=== PATIENT | female | born 1955 | race Caucasian/White ===

== ENCOUNTER → 2017-03-28 | Outpatient (CLI) | payer OTHER ==
--- NOTE | 2017-03-28 13:01 | XR ---
EXAMINATION TYPE: XR chest 2V DATE OF EXAM: 03/28/2017 COMPARISON: Prior chest x-ray 01/25/2013 HISTORY: Nonspecific reaction to tuberculin skin test, R76.11 TECHNIQUE: Frontal and lateral views of the chest are obtained. FINDINGS: Postop changes are noted at the cervicothoracic junction level. Apical pleural thickening is present. There is a mild spinal curvature, degenerative disc changes are present within the visual ized spine. No pneumonia, pneumothorax, or pleural effusion. Prominent lung volume could be indicativ e of underlying COPD. Cardiac mediastinal silhouette, pulmonary vascularity and tiffany within normal li mits. IMPRESSION: No acute cardiopulmonary process.
== END | disposition home or self-care (01) ==
LOC: RADXRMAIN 10:27
PROVIDERS: ATTEND Dermatology MOHS-Micrographic Surgery
DX: R76.11 Nonspecific reaction to tuberculin skin test without active tuberculosis (principal)
CPT/HCPCS: 71020

== ENCOUNTER → 2020-07-28 | Outpatient (CLI) | payer MEDICARE, OTHER ==
[2020-07-28 14:05] LABS: HCT 47.1 % (34.0-46.0); HGB 15.1 gm/dL (11.4-16.0); MCH 27.2 pg (25.0-35.0); MCHC 31.9 g/dL (31.0-37.0); MCV 85.2 fL (80.0-100.0); Platelet Count 291 k/uL (150-450); RBC 5.53 m/uL (3.80-5.40); RDW 13.4 % (11.5-15.5); WBC 13.3 k/uL (3.8-10.6)
[2020-07-28 14:17] LABS: Magnesium 2.2 mg/dL (1.6-2.3); Potassium 5.6 mmol/L (3.5-5.1)
== END | disposition home or self-care (01) ==
LOC: LABWHC1 11:29
PROVIDERS: ATTEND Internal Medicine Interventional Cardiology
DX: Z01.818 Encounter for other preprocedural examination (principal); R07.9 Chest pain, unspecified
CPT/HCPCS: 36415; 82565; 83735; 84132; 84520; 85027

== ENCOUNTER 2020-08-07 06:36 | Day surgery (SDC) | payer MEDICARE, OTHER ==
[2020-08-05 11:43] VITALS: BMI 25.9
[~2020-08-07 06:36] MED LIST: ALPRAZolam 0.25 MG TAB PO PRN; ALPRAZolam 0.5 MG TAB PO PRN; ASPIRIN 325 MG TAB PO STA; ATORVASTATIN 80 MG TAB PO STA; NITROGLYCERIN SL TABS 0.4 MG TAB SUBLINGUAL PRN; SODIUM CHLORIDE 0.9% 1,000 ML in EMPTY BAG 1 BAG IV ONE
[2020-08-07] MEDS ORDERED: SODIUM CHLORIDE 0.9% 1,000 ML IV ONE (06:46)
[2020-08-07 07:04] VITALS: RESP 16
[2020-08-07 07:15] LABS: Basophils # (A) 0.1 k/uL (0-0.2); Basophils % (A) 1 %; Eosinophils # (A) 0.4 k/uL (0-0.7); Eosinophils % (A) 3 %; HCT 46.1 % (34.0-46.0); Lymphocytes # (A) 1.1 k/uL (1.0-4.8); Lymphocytes % (A) 9 %; MCH 28.3 pg (25.0-35.0); MCHC 32.6 g/dL (31.0-37.0); Mean Platelet Volume 6.6; Monocytes # (A) 0.9 k/uL (0-1.0); Monocytes % (A) 7 %; Neutrophils # (A) 9.6 k/uL (1.3-7.7); Neutrophils % (A) 77 %; Platelet Count 244 k/uL (150-450); RDW 13.4 % (11.5-15.5); WBC 12.4 k/uL (3.8-10.6)
[2020-08-07 07:28] LABS: Calcium 9.5 mg/dL (8.4-10.2); Magnesium 2.1 mg/dL (1.6-2.3); Potassium 4.5 mmol/L (3.5-5.1)
[2020-08-07] MEDS ORDERED: MIDAZOLAM 2 MG/2 ML VIAL IVP ONE (07:39)
[2020-08-07] MEDS ORDERED: LIDOCAINE 1% INJ 10MG/ML (20 ML MDV) SQ ONE (07:40)
[2020-08-07] MEDS ORDERED: VERAPAMIL SYRINGE (5 MG/10 ML) INTRAARTER ONE (07:41)
[2020-08-07] MEDS ORDERED: HEPARIN SODIUM 1,000 UN/ML (10ML VL) IV ONE (07:42)
[2020-08-07] MEDS ORDERED: IOPAMIDOL-370 125ML BTL INJ ONE (07:48)
[2020-08-07] MEDS ORDERED: RX INFO: IV CONTRAST WAS GIVEN 1 EACH MISC MISCELLANE PRN (07:56)
[2020-08-07] MEDS ORDERED: SODIUM CHLORIDE 0.9% 1,000 ML IV SCH (08:00)
--- NOTE | 2020-08-07 09:22 | CC ---
CARDIAC CATHETERIZATION REPORT DATE OF SERVICE: 08/07/2020 PERFORMING PHYSICIAN: Israel Harley MD. PROCEDURE PERFORMED: 1. Selective right and left coronary angiogram. 2. Left heart catheterization. INDICATION: This is a very pleasant 65-year-old female patient with history of smoking and significant family history of coronary artery disease, was experiencing left arm and chest discomfort concerning for angina. She expressed that she would like to have a definite diagnosis and because of that, a heart catheterization was advised. APPROACH: Right radial artery. COMPLICATION: None. LEVEL OF SEDATION: Moderate with sedation length of 13 minutes. PROCEDURE DESCRIPTION: After obtaining an informed consent, the patient was brought to the cardiac laborer beam house. The right radial artery was cannulated using micropuncture technique, the micropuncture wire passed easily and I placed after that a 5-Bolivian sheath at the right radial artery. Two mg of verapamil IA and a total of 5000 of heparin given after that. Selective right and left coronary angiogram were performed using JR4 and JL3.5 catheters. After that, I did leave heart catheterization using 5-Bolivian pigtail catheter. The procedure was completed without any complication. SELECTIVE CORONARY ANGIOGRAM: 1. The right coronary artery is a large caliber vessel and it is a dominant vessel. The RCA is angiographically normal. It bifurcates distally into PDA and PLV branches, both are angiographically normal. 2. The left main is angiographically normal, it bifurcates into LCX and LAD. 3. The LCX is a large caliber vessel, it is a nondominant vessel. The left circumflex is angiographically normal. It gives rise into an OM branch which appeared to be angiographically normal. 4. The LAD, the LAD is angiographically normal. The LAD gives rise in the proximal portion into a large diagonal branch which seems to be angiographically normal. 5. HEMODYNAMICS: The LVEDP was 10 mmHg without significant gradient across the aortic valve. CONCLUSION: 1. Normal coronary angiogram. 2. Normal LVEDP. MMODL / IJN: [id number] /
[2020-08-07 15:18] VITALS: BP 148/82; PULSE 77
== END 2020-08-07 14:50 | disposition home or self-care (01) ==
LOC: CATHCVL 06:36
PROVIDERS: ATTEND Internal Medicine Interventional Cardiology
DX: R07.89 Other chest pain (principal); R06.02 Shortness of breath; R20.0 Anesthesia of skin; R94.31 Abnormal electrocardiogram [ECG] [EKG]; F17.210 Nicotine dependence, cigarettes, uncomplicated; Z82.49 Family history of ischemic heart disease and other diseases of the circulatory system; Z79.82 Long term (current) use of aspirin; Z79.899 Other long term (current) drug therapy
CPT/HCPCS: 93458; 80048; 83735; 85025; C1769; C1894; J2250; J2001; J1644; Q9967

== ENCOUNTER → 2020-08-26 | Outpatient (CLI) | payer MEDICARE, OTHER ==
--- NOTE | 2020-08-27 09:10 | CT ---
EXAMINATION TYPE: CT angio neck DATE OF EXAM: 08/26/2020 HISTORY: left sided stenosis COMPARISON: NONE CT DLP: 476.1 mGycm. Automated Exposure Control for Dose Reduction was Utilized. TECHNIQUE: CTA scan of the neck is performed without and with IV Contrast, patient injected with 65c c mL of Isovue 370, axial images are obtained, coronal and sagittal reformatted images are reviewed. Three-D reconstructed images are created on an independent workstation and reviewed. FINDINGS: Carotid/Vascular Structures: Normal 3 vessel origin from the aortic arch. [id number] peripheral plaque in the aortic arch. Normal origin right common carotid artery from the right brachiocephalic artery. No significant plaque or stenosis right common carotid artery. Moderate calcified plaque righ t carotid bulb extends into external carotid artery where there is moderate noncalcified plaque, no s ignificant stenosis is noted. Patent right internal carotid artery without significant plaque or sten osis, mild to moderate calcified plaque supraclinoid segment without significant stenosis. Mild peripheral plaque along course of the left common carotid artery without significant stenosis. M ore moderate mixed plaque left carotid bulb extending into proximal internal carotid artery where the re is more significant noncalcified plaque causing stenosis. Stenosis best appreciated narrow series 10 image 477 Ross segment where the lumen diameter is narrowed to 1.4 mm and reconstitution to 5.0 mm cranial to this image 507. Remainder left internal carotid artery shows mild calcified plaque suprac linoid segments without significant stenosis. There is a patent external carotid artery without signi ficant stenosis. Codominant vertebrobasilar system. Vertebral arteries are patent to basilar junction. Other: Rim-enhancing 1.1 cm lateral left thyroid nodule mid to lower pole level axial image 34 series 7. Moderate emphysematous change with scattered labs in the visualized lung apices. There is anterior fusion plate and artificial disc material C5-C7 levels. Coronal images show scoliot ic curvature in the cervical thoracic spine. IMPRESSION: 1. Confirmation of significant focal stenosis in the proximal left internal carotid artery measured a pproaching 75% lumen diameter narrowing. 2. Greater than 1 cm enhancing left thyroid nodule, follow-up thyroid ultrasound is advised to better evaluate and characterize if this is not known finding.
== END | disposition home or self-care (01) ==
LOC: RADCTMAIN 14:26
PROVIDERS: ATTEND Internal Medicine Interventional Cardiology
DX: I65.22 Occlusion and stenosis of left carotid artery (principal); E04.1 Nontoxic single thyroid nodule
CPT/HCPCS: 82565; 84520; 70498; 36415; Q9967

== ENCOUNTER 2020-09-16 08:30 | Inpatient (IN) | payer MEDICARE, OTHER ==
[2020-09-14 10:50] VITALS: BMI 25.9
[2020-09-21] MEDS ORDERED: NITROGLYCERIN SL TABS 0.4 MG TAB SUBLINGUAL PRN (05:54)
[2020-09-21] MEDS ORDERED: ASPIRIN 325 MG TAB PO PRN (05:54)
[2020-09-21] MEDS ORDERED: SODIUM CHLORIDE 0.9% 1,000 ML in EMPTY BAG 1 BAG IV ONE (05:54)
[2020-09-21] MEDS ORDERED: CLOPIDOGREL 75 MG TAB PO PRN (05:54)
[2020-09-21] MEDS ORDERED: ASPIRIN 81 MG ONE (06:41)
[2020-09-21] MEDS ORDERED: CLOPIDOGREL 75 MG TAB ONE (07:12)
[2020-09-21] MEDS ORDERED: LIDOCAINE 1% INJ 10MG/ML (20 ML MDV) SQ ONE (07:53)
[2020-09-21] MEDS: HEPARIN SODIUM 1,000 UN/ML (10ML VL) IV ONE ×2 (08:05→09:09)
[2020-09-21] MEDS ORDERED: IOPAMIDOL-250 100ML BTL INTRAARTER ONE (09:36)
[2020-09-21] MEDS ORDERED: MAG HYDROX/AL HYDROX/SIMETH 30 ML CUP PO PRN (09:45)
[2020-09-21] MEDS ORDERED: RX INFO: IV CONTRAST WAS GIVEN 1 EACH MISC MISCELLANE PRN (09:45)
[2020-09-21] MEDS ORDERED: ATROPINE SULFATE 0.1 MG/ML 10ML SYRINGE IV PRN (09:45)
--- NOTE | 2020-09-21 10:24 | LTR ---
DATE OF SERVICE: 09/21/2020 RE: Alysha Aburto Dear Dr. Balbuena: Ms. Zane Longo underwent today successful stenting of the left common and left internal carotid artery. Thank you for allowing us to participate in her care and please do not hesitate to call for question or concern. Sincerely, Israel Harley MD MMIRA / LEEANNA: [id number] /
--- NOTE | 2020-09-21 10:46 | AN ---
ANGIOGRAPHY REPORT DATE OF SERVICE: 09/21/2020. PERFORMING PHYSICIAN: Israel Harley MD. PROCEDURE PERFORMED: 1. Successful stenting of the left internal carotid artery using 6-2.8 mm x 40 mm Acculink self expandable stent with an excellent angiographic results. 2. Successful placement of Emboshield NAV6 distal protection filter. 3. Successful stenting of the ostial right common carotid artery using 7.0 x 29 mm Omnilink Elite balloon expandable stent with an excellent angiographic results. 4. An angiogram of the left common and left internal carotid artery. 5. An aortic arch angiogram. INDICATION: This is a 65-year-old female patient who was diagnosed recently with critical disease involving the left internal carotid artery. She was brought today to undergo an intervention. APPROACH: Right common femoral artery. COMPLICATION: None. LEVEL OF SEDATION: Moderate with sedation length of 107 minutes. PROCEDURE DESCRIPTION: After obtaining an informed consent, the patient was brought to the cardiac equipment operator/laborer. The right common femoral artery was cannulated using micropuncture technique and a micropuncture wire passed easily, then I placed a 90 cm 6-Burkinan shuttle sheath. I did after that, an aortic arch angiogram using 5-Burkinan pigtail catheter. That revealed type 2 aortic arch with calcification involving the ostial of the left common carotid artery. Subsequently, I tried to select the left common carotid artery using a JB2 catheter and I was unsuccessful. Then after that I was able using a Berenstein catheter. After that, I did wire the left common carotid artery and left external carotid artery using 0.035 stiff Glidewire. Attempting advancing the sheath over the over the Berenstein catheter and the 0.035 stiff Glidewire was unsuccessful even though I changed my wire into Supercore wire. After that, I was able to advance the sheath over the dilator and using 0.035 stiff Glidewire, but this time I did change my sheath into sheath. Subsequently< I did selective left internal carotid artery angiogram which showed a very tight ulcerated lesion. After prepping the filter, which was an F6 filter under saline, and made sure there was no bubble left, I did deploy the filter in the left internal carotid artery. Predilatation was performed using 4 mm balloon and using 4 mm x 30 mm balloon. Subsequently, I deployed the 6 to 8 mm x 40 mm balloon self-expandable stent where the stent was positioned under fluoroscopic guidance. After that, I post-dilated the stent using 5 mm balloon. The following angiogram showed excellent angiographic result. Because the ostial of the left common iliac artery has very tight lesion, I decided to stent that. So I advanced 7 x 29 mm Omnilink balloon expandable stent where the stent was positioned under fluoroscopy guidance and then it was deployed after injected contrast to make sure I was in the right place. The following angiogram showed excellent angiographic results and the procedure was completed without any complication. By the end, I did selective right common femoral artery angiogram after I changed my long sheath into short sheath using 0.035 stiff Glidewire. Then after that I did deploy the Perclose device. The procedure was completed without any complication. POSTPROCEDURE MANAGEMENT: 1. Dual anti-platelet therapy. 2. Risk factor modifications. 3. Follow up with the patient. MMODL / IJN: [id number] /
[2020-09-21] MEDS: ACETAMINOPHEN TAB 325 MG TAB PO PRN ×2 (11:03→20:06)
[2020-09-21] MEDS: SODIUM CHLORIDE 0.9% 1,000 ML IV SCH ×2 (13:30→20:07)
--- NOTE | 2020-09-21 17:09 | IR ---
EXAMINATION TYPE: IR stent intravas non coronary DATE OF EXAM: 09/21/2020 COMPARISON: NONE HISTORY: Left carotid stenosis TECHNIQUE: Fluoroscopy. FINDINGS: Fluoroscopic guidance was provided during procedure performed by Dr. Root. A total of 43 .5 minute of fluoroscopic time was utilized during the procedure and 504 images were acquired. Please see operative report for additional details. IMPRESSION: As Above.
[2020-09-21] MEDS ORDERED: ATORVASTATIN 40 MG TAB PO SCH (21:00)
[2020-09-21] MEDS ORDERED: ATORVASTATIN 80 MG TAB PO SCH (21:00)
[2020-09-22 08:16] VITALS: BP 107/66; PULSE 84; RESP 18; TEMP 98.4
[2020-09-22 08:18] LABS: Basophils # (A) 0.1 k/uL (0-0.2); Basophils % (A) 1 %; Eosinophils # (A) 0.5 k/uL (0-0.7); Eosinophils % (A) 5 %; HCT 40.2 % (34.0-46.0); HGB 13.4 gm/dL (11.4-16.0); Lymphocytes # (A) 1.2 k/uL (1.0-4.8); Lymphocytes % (A) 11 %; MCH 28.3 pg (25.0-35.0); MCHC 33.3 g/dL (31.0-37.0); MCV 85.1 fL (80.0-100.0); Mean Platelet Volume 6.8; Monocytes # (A) 0.8 k/uL (0-1.0); Monocytes % (A) 8 %; Neutrophils # (A) 7.8 k/uL (1.3-7.7); Neutrophils % (A) 73 %; Platelet Count 206 k/uL (150-450); RBC 4.73 m/uL (3.80-5.40); RDW 13.1 % (11.5-15.5); WBC 10.7 k/uL (3.8-10.6)
[2020-09-22 08:38] LABS: Calcium 9.3 mg/dL (8.4-10.2); Potassium 4.8 mmol/L (3.5-5.1)
[2020-09-22] MEDS ORDERED: CLOPIDOGREL 75 MG TAB PO SCH (09:00)
[2020-09-22] MEDS ORDERED: ASPIRIN 81 MG PO SCH (09:00)
[2020-09-22] MEDS ORDERED: ASPIRIN 325 MG TAB PO SCH (09:00)
--- NOTE | 2020-09-22 10:09 | P.PN ---
Subjective Progress Note Date: 09/22/20 Discharge note This is a pleasant 65-year-old female with history of nicotine dependence, strong family history of premature coronary artery disease, hyperlipidemia, who was found to have critical disease involving the left internal carotid artery. She was admitted to the hospital and underwent successful stenting of the left internal carotid artery, successful placement of Emboshield protection filter, successful stenting of the ostial right common carotid artery. The patient was seen and examined this morning, overall doing well, blood pressure 108/60 with a heart rate in the 80s, temperature 98.4 she is 99% on room air. White blood cell count 10.7, hemoglobin 13.4, platelet count 206. Sodium 137, potassium 4.8, BUN 15, creatinine 0.8. Objective - Vital Signs Vital signs: Vital Signs Temp 98.4 F 09/22/20 08:00 Pulse 84 09/22/20 08:00 Resp 18 09/22/20 08:00 BP 107/66 09/22/20 08:00 Pulse Ox 99 09/22/20 08:00 Intake & Output 09/21/20 09/22/20 09/22/20 18:59 06:59 18:59 Intake Total 840 Output Total 340 Balance 840 -340 Weight 64.41 kg 64.4 kg Intake: IV 600 Oral 240 Output: Urine 340 Other: # Voids 1 1 - Exam PHYSICAL EXAMINATION: GENERAL: 65-year-old female in no acute distress at the time of my examination HEENT: Head is atraumatic, normocephalic. Pupils equal, round. Sclera anicteric. Conjunctiva are clear. Mucous membranes of the mouth are moist. Neck is supple. There is no elevated jugular venous pressure. HEART EXAMINATION: Heart S1, S2 normal. No murmur or gallop heard. CHEST EXAMINATION: Lungs are clear to auscultation and precussion. No chest wall tenderness is noted on palpation or with deep breathing. ABDOMEN: Soft, nontender. Bowel sounds are heard. No organomegaly noted. EXTREMITIES: 2+ peripheral pulses with no evidence of peripheral edema and no calf tenderness noted. Right groin is soft, it is ecchymotic. No hematoma. NEUROLOGIC patient is awake, alert and oriented 3 . - Labs CBC & Chem 7: 09/22/20 07:19 09/22/20 07:19 Labs: Abnormal Lab Results - Last 24 Hours (Table) 09/22/20 09/22/20 Range/Units 07:19 07:19 WBC 10.7 H (3.8-10.6) k/uL Neutrophils # 7.8 H (1.3-7.7) k/uL Glucose 128 H (74-99) mg/dL Assessment and Plan Plan: Assessment and plan #1 status post successful stenting of the left internal carotid artery with placement of Emboshield protection filter, successful stenting of the ostial right common carotid. #2 nicotine dependence #3 hyperlipidemia #4 family history of premature coronary artery disease Plan Patient may be discharged home today. We'll make her a follow-up appointment in the office with Dr. Root in one week. Discharge medications include aspirin 81 mg daily, Lipitor 80 mg daily, Plavix 75 mg daily, Toprol 25 mg daily. DNP note has been reviewed, I agree with a documented findings and plan of care. Patient was seen and examined.
[2020-10-05] MEDS ORDERED: PATIENT'S OWN (Adalimumab [Humira(Cf) Pen] 40 MG/0.4 ML Pen.Ij.Kit) SQ SCH (09:00)
== END 2020-09-22 11:57 | disposition home or self-care (01) | DRG 36 ==
LOC: 2ORMAIN 09-21 06:22 → 3SCARD 09-21 12:18
PROVIDERS: ADMIT Internal Medicine Interventional Cardiology; ATTEND Internal Medicine Interventional Cardiology
PROC: 037L3DZ Dilation of Left Internal Carotid Artery with Intraluminal Device, Percutaneous Approach (ICD-10-PCS; principal; 2020-09-21 07:30)
PROC: 037H3DZ Dilation of Right Common Carotid Artery with Intraluminal Device, Percutaneous Approach (ICD-10-PCS; 2020-09-21 07:30)
DX: I65.23 Occlusion and stenosis of bilateral carotid arteries (principal); Z82.49 Family history of ischemic heart disease and other diseases of the circulatory system; F17.210 Nicotine dependence, cigarettes, uncomplicated; E78.5 Hyperlipidemia, unspecified; Z79.82 Long term (current) use of aspirin; Z79.899 Other long term (current) drug therapy
CPT/HCPCS: 37215; 37218; 80048; 85025; 85347

== ENCOUNTER 2023-01-10 07:24 | Observation (INO) | payer MEDICARE, OTHER ==
[2023-01-10] MEDS ORDERED: SODIUM CHLORIDE 0.9% 500 ML 500 ML IV STA (07:40)
[2023-01-10] MEDS ORDERED: MORPHINE SULFATE 2 MG/ML SYRINGE IVP ONE (07:41)
[2023-01-10] MEDS ORDERED: ONDANSETRON 4 MG/2 ML VIAL IVP STA (07:41)
[2023-01-10] MEDS ORDERED: NITROGLYCERIN OINT 1 INCH/GM PACKET TOPICAL STA (07:41)
[2023-01-10 08:03] LABS: Basophils # (A) 0.1 k/uL (0-0.2); Basophils % (A) 0 %; Eosinophils # (A) 0.1 k/uL (0-0.7); Eosinophils % (A) 1 %; HCT 40.8 % (34.0-46.0); HGB 13.3 gm/dL (11.4-16.0); Lymphocytes # (A) 1.3 k/uL (1.0-4.8); Lymphocytes % (A) 6 %; MCH 27.7 pg (25.0-35.0); MCHC 32.6 g/dL (31.0-37.0); MCV 84.8 fL (80.0-100.0); Monocytes # (A) 1.4 k/uL (0-1.0); Monocytes % (A) 7 %; Neutrophils # (A) 17.8 k/uL (1.3-7.7); Neutrophils % (A) 84 %; Platelet Count 236 k/uL (150-450); RBC 4.81 m/uL (3.80-5.40); RDW 13.9 % (11.5-15.5); WBC 21.3 k/uL (3.8-10.6)
[2023-01-10 08:17] LABS: ALT 90 U/L (4-34); AST 51 U/L (14-36); African American GFR (CKD) >90 (>60 ml/min/1.73 sqM); Albumin 3.8 g/dL (3.5-5.0); Alkaline Phosphatase 90 U/L (38-126); Anion Gap 7 mmol/L; Blood Urea Nitrogen 23 mg/dL (7-17); Calcium 8.8 mg/dL (8.4-10.2); Carbon Dioxide 26 mmol/L (22-30); Chloride 106 mmol/L (98-107); Glucose 91 mg/dL (74-99); Magnesium 2.3 mg/dL (1.6-2.3); Non-African American GFR(CKD) 79 (>60 ml/min/1.73 sqM); Sodium 139 mmol/L (137-145); Total Bilirubin 0.4 mg/dL (0.2-1.3); Total Protein 6.3 g/dL (6.3-8.2)
[2023-01-10 08:23] LABS: Prothrombin Time 10.3 sec (9.0-12.0)
[2023-01-10 08:27] LABS: Partial Thromboplastin Time 19.9 sec (22.0-30.0)
[2023-01-10] MEDS ORDERED: ASPIRIN 81 MG PO STA (08:27)
--- NOTE | 2023-01-10 08:28 | ED ---
General Adult HPI - General Chief complaint: Shortness of Breath Stated complaint: FRANKI Time Seen by Provider: 01/10/23 07:33 Source: patient, family, RN notes reviewed Mode of arrival: wheelchair Limitations: no limitations - History of Present Illness Initial comments: 67-year-old female returns emergency Department chief complaint chest pain shortness of breath. Patient states it started swelling. Patient was discharged from the hospital yesterday after she was admitted for her eczema, infection. Patient states that she started having chest pain increasing shortness of breath states that she feels like she has pain. Patient states she took 2 nitro which helped some. Patient states that she has a history of hypertension she has 2 prior carotid stents no cardiac stents. 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 - Related Data Home Medications Medication Instructions Recorded Confirmed Aspirin [Adult Low Dose Aspirin EC] 81 mg PO DAILY 08/05/20 01/10/23 Metoprolol Succinate (ER) [Toprol 25 mg PO DAILY 09/14/20 01/10/23 XL] Atorvastatin [Lipitor] 40 mg PO DAILY 01/07/23 01/10/23 lisinopriL [Zestril] 2.5 mg PO DAILY 01/07/23 01/10/23 predniSONE See Taper PO DAILY 01/10/23 01/10/23 Previous Rx's Medication Instructions Recorded Clopidogrel [Plavix] 75 mg PO DAILY #30 tab 09/22/20 Cephalexin [Keflex] 500 mg PO Q6HR 10 Days #40 cap 01/09/23 HYDROcodone/APAP 10-325MG [Crockett 1 tab PO Q6HR PRN 3 Days #12 tab 01/09/23 10-325] hydrOXYzine HCL [Atarax] 25 mg PO QID tab 01/09/23 Allergies Allergy/AdvReac Type Severity Reaction Status Date / Time No Known Allergies Allergy Verified 01/10/23 08:59 Review of Systems ROS Statement: Those systems with pertinent positive or pertinent negative responses have been documented in the HPI. ROS Other: All systems not noted in ROS Statement are negative. Past Medical History Past Medical History: COPD, Hyperlipidemia, Hypertension, Osteoarthritis (OA), Skin Disorder Additional Past Medical History / Comment(s): Psoriasis. See Dr Harley's H&P. Recent left arm numbness and tingling, irregular heartbeat, chest feels heavy X last 3-4 weeks periodically. History of Any Multi-Drug Resistant Organisms: None Reported Past Surgical History: Heart Catheterization, Orthopedic Surgery, Tonsillectomy Additional Past Surgical History / Comment(s): Neck surgery C5/6/7 plate placement. Carotid stent x2 09/21 Past Anesthesia/Blood Transfusion Reactions: No Reported Reaction Past Psychological History: No Psychological Hx Reported Smoking Status: Current every day smoker Past Alcohol Use History: None Reported Past Drug Use History: None Reported - Past Family History Mother Family Medical History: No Reported History General Exam Limitations: no limitations General appearance: alert, in no apparent distress Head exam: Present: atraumatic, normocephalic, normal inspection Eye exam: Present: normal appearance, PERRL, EOMI. Absent: scleral icterus, conjunctival injection, periorbital swelling ENT exam: Present: normal exam, normal oropharynx, mucous membranes moist Neck exam: Present: normal inspection, full ROM. Absent: tenderness, meningismus, lymphadenopathy Respiratory exam: Present: normal lung sounds bilaterally. Absent: respiratory distress, wheezes, rales, rhonchi, stridor Cardiovascular Exam: Present: regular rate, normal rhythm, normal heart sounds. Absent: systolic murmur, diastolic murmur, rubs, gallop, clicks GI/Abdominal exam: Present: soft, normal bowel sounds. Absent: distended, tenderness, guarding, rebound, rigid Course Vital Signs 01/10/23 07:28 Temperature 97.8 F Pulse Rate 100 Respiratory 24 Rate Blood Pressure 158/75 O2 Sat by Pulse 99 Oximetry Medical Decision Making - Medical Decision Making Was pt. sent in by a medical professional or institution (, PA, HOTEL OPERATIONS MANAGER, urgent care, hospital, or shelter...) When possible be specific @ -[No] Did you speak to anyone other than the patient for history (EMS, parent, family, police, friend...)? What history was obtained from this source @ -[No] Did you review nursing and triage notes (agree or disagree)? Why? @ -[I reviewed and agree with nursing and triage notes] Were old charts reviewed (outside hosp., previous admission, EMS record, old EKG, old radiological studies, urgent care reports/EKG's, shelter records)? Report findings @ -[Nrecent laboratory studies and prior heart catheterization] Differential Diagnosis (chest pain, altered mental status, abdominal pain women, abdominal pain men, vaginal bleeding, weakness, fever, dyspnea, syncope, headache, dizziness, GI bleed, back pain, seizure, CVA, palpatations, mental health, musculoskeletal)? @ -[Differential Chest Pain: Stable Angina, Unstable Angina, STEMI, NSTEMI Aortic Dissection, Pneumothorax, Musculoskeletal, Esophageal Spasm GERD, Cholecystitis, Pancreatitis, Zoster, th is is not meant to be an all-inclusive list. ] EKG interpreted by me (3pts min.). @ -[ EKG performed at 8:34 sinus rhythm rate of 87 MD 88 QT/QTC 377/422] X-rays interpreted by me (1pt min.). @ -[chest x-ray shows no acute process] CT interpreted by me (1pt min.). @ -[CT angiogram does not show any evidence of PE.e] U/S interpreted by me (1pt. min.). @ -[None done] What testing was considered but not performed or refused? (CT, X-rays, U/S, labs)? Why? @ -[None] What meds were considered but not given or refused? Why? @ -[None] Did you discuss the management of the patient with other professionals (professionals i.e. , PA, HOTEL OPERATIONS MANAGER, lab, RT, psych nurse, social science professor, director environmental, teacher, electorate officer, ed case manager)? Give summary @ -[Dr. Velazquez for admission with consult cardiology] Was smoking cessation discussed for >3mins.? @ -[No] Was critical care preformed (if so, how long)? @ -[No] Were there social determinants of health that impacted care today? How? (Homelessness, low income, unemployed, alcoholism, drug addiction, transportation, low edu. Level, literacy, decrease access to med. care, halfway, rehab)? @ -[No] Was there de-escalation of care discussed even if they declined (Discuss DNR or withdrawal of care, Hospice)? DNR status @ -[No] What co-morbidities impacted this encounter? (DM, HTN, Smoking, COPD, CAD, Cancer, CVA, ARF, Chemo, Hep., AIDS, mental health diagnosis, sleep apnea, morbid obesity)? @ -[None] Was patient admitted / discharged? Hospital course, mention meds given and route, prescriptions, significant lab abnormalities, going to OR and other per cameron info. @ -[admitted patient had relief after nitro patient has multiple risk factors will be admitted for cardiac rule out] Undiagnosed new problem with uncertain prognosis? @ -[No] Drug Therapy requiring intensive monitoring for toxicity (Heparin, Nitro, Insulin, Cardizem)? @ -[yes heparino] Were any procedures done? @ -[No] Diagnosis/symptom? @ -[chest pain] Acute, or Chronic, or Acute on Chronic? @ -[acutet] Uncomplicated (without systemic symptoms) or Complicated (systemic symptoms)? @ -[uncomplicated Side effects of treatment? @ -[No] Exacerbation, Progression, or Severe Exacerbation? @ -[No] Poses a threat to life or bodily function? How? (Chest pain, [place], [place], pneumonia, PE, COPD, DKA, ARF, appy, cholecystitis, CVA, Diverticulitis, Homicidal, Suicidal, threat to staff... and all critical care pts) @ -[yes chest pain may cause cardiac arrhythmia may lead to potential cardiac - Lab Data Result diagrams: 01/10/23 07:43 01/10/23 07:43 Lab Results 01/10/23 01/10/23 01/10/23 Range/Units 07:43 07:43 07:43 WBC 21.3 H (3.8-10.6) k/uL RBC 4.81 (3.80-5.40) m/uL Hgb 13.3 (11.4-16.0) gm/dL Hct 40.8 (34.0-46.0) % MCV 84.8 (80.0-100.0) fL MCH 27.7 (25.0-35.0) pg MCHC 32.6 (31.0-37.0) g/dL RDW 13.9 (11.5-15.5) % Plt Count 236 (150-450) k/uL MPV 7.0 Neutrophils % 84 % Lymphocytes % 6 % Monocytes % 7 % Eosinophils % 1 % Basophils % 0 % Neutrophils # 17.8 H (1.3-7.7) k/uL Lymphocytes # 1.3 (1.0-4.8) k/uL Monocytes # 1.4 H (0-1.0) k/uL Eosinophils # 0.1 (0-0.7) k/uL Basophils # 0.1 (0-0.2) k/uL PT 10.3 (9.0-12.0) sec INR 1.0 (<1.2) APTT 19.9 L (22.0-30.0) sec D-Dimer 2.01 H (<0.60) mg/L FEU Sodium 139 (137-145) mmol/L Potassium 4.0 (3.5-5.1) mmol/L Chloride 106 (98-107) mmol/L Carbon Dioxide 26 (22-30) mmol/L Anion Gap 7 mmol/L BUN 23 H (7-17) mg/dL Creatinine 0.78 (0.52-1.04) mg/dL Est GFR (CKD-EPI)AfAm >90 (>60 ml/min/1.73 sqM) Est GFR (CKD-EPI)NonAf 79 (>60 ml/min/1.73 sqM) Glucose 91 (74-99) mg/dL Calcium 8.8 (8.4-10.2) mg/dL Magnesium 2.3 (1.6-2.3) mg/dL Total Bilirubin 0.4 (0.2-1.3) mg/dL AST 51 H (14-36) U/L ALT 90 H (4-34) U/L Alkaline Phosphatase 90 (38-126) U/L Troponin I (0.000-0.034) ng/mL NT-Pro-B Natriuret Pep pg/mL Total Protein 6.3 (6.3-8.2) g/dL Albumin 3.8 (3.5-5.0) g/dL 01/10/23 01/10/23 Range/Units 07:43 07:43 WBC (3.8-10.6) k/uL RBC (3.80-5.40) m/uL Hgb (11.4-16.0) gm/dL Hct (34.0-46.0) % MCV (80.0-100.0) fL MCH (25.0-35.0) pg MCHC (31.0-37.0) g/dL RDW (11.5-15.5) % Plt Count (150-450) k/uL MPV Neutrophils % % Lymphocytes % % Monocytes % % Eosinophils % % Basophils % % Neutrophils # (1.3-7.7) k/uL Lymphocytes # (1.0-4.8) k/uL Monocytes # (0-1.0) k/uL Eosinophils # (0-0.7) k/uL Basophils # (0-0.2) k/uL PT (9.0-12.0) sec INR (<1.2) APTT (22.0-30.0) sec D-Dimer (<0.60) mg/L FEU Sodium (137-145) mmol/L Potassium (3.5-5.1) mmol/L Chloride (98-107) mmol/L Carbon Dioxide (22-30) mmol/L Anion Gap mmol/L BUN (7-17) mg/dL Creatinine (0.52-1.04) mg/dL Est GFR (CKD-EPI)AfAm (>60 ml/min/1.73 sqM) Est GFR (CKD-EPI)NonAf (>60 ml/min/1.73 sqM) Glucose (74-99) mg/dL Calcium (8.4-10.2) mg/dL Magnesium (1.6-2.3) mg/dL Total Bilirubin (0.2-1.3) mg/dL AST (14-36) U/L ALT (4-34) U/L Alkaline Phosphatase (38-126) U/L Troponin I 0.027 (0.000-0.034) ng/mL NT-Pro-B Natriuret Pep 2340 pg/mL Total Protein (6.3-8.2) g/dL Albumin (3.5-5.0) g/dL Disposition Clinical Impression: Chest pain Disposition: ADMITTED IP TO THIS HOSP Condition: Fair Referrals: Lesley Balbuena MD [Primary Care Provider] - 1-2 days Time of Disposition: 09:55
--- NOTE | 2023-01-10 08:33 | XR ---
EXAMINATION TYPE: XR chest 2V DATE OF EXAM: 01/10/2023 8:27 AM COMPARISON: Chest radiographs from 03/28/2017 TECHNIQUE: XR chest 2V Frontal and lateral views of the chest. CLINICAL INDICATION:Female, 67 years old with history of difficulty breathing; FINDINGS: Lungs/Pleura: Bibasilar dependent airspace opacities demonstrated on the lateral view. No pleural eff usion or pneumothorax. Pulmonary vascularity: Unremarkable. Heart/mediastinum: Cardiomediastinal silhouette is unremarkable. Atherosclerotic calcifications are seen in the aorta. Musculoskeletal: No acute osseous pathology. Anterior cervical fusion hardware. IMPRESSION: Minimal bibasilar dependent airspace opacities may represent atelectasis versus infiltrates.
--- NOTE | 2023-01-10 09:23 | CT ---
EXAMINATION TYPE: CT chest angio for PE CT DLP: 287.1 mGycm, Automated exposure control for dose reduction was used. DATE OF EXAM: 01/10/2023 8:55 AM COMPARISON: Chest radiograph from same day. CLINICAL INDICATION:Female, 67 years old with history of cp, sob; PE TECHNIQUE/CONTRAST: CTA scan of the thorax is performed without and with IV Contrast, patient injected with 100 ml mL of Isovue 370, pulmonary embolism protocol. MIP images are created and reviewed these are created on a separate workstation.. FINDINGS: Pulmonary Artery: There is no evidence for a filling defect within the pulmonary vasculature to sugge st acute pulmonary embolism. The pulmonary artery is of normal size. Lungs/Pleura: No evidence of focal consolidation or pneumothorax. Bilateral pleural effusions. Mild p araseptal and centrilobular emphysema changes. Airway: Large airways are patent. Heart: Heart is within normal limits for size. Vasculature: No evidence of aortic aneurysm. Stent graft noted within the left common carotid artery along the proximal portion. Mediastinum: No gross evidence of adenopathy. Musculoskeletal: Mild degenerative disc disease changes are present throughout the thoracolumbar spin e. Soft Tissues: Unremarkable. Lower neck: No significant findings. Upper Abdomen: Indeterminate left adrenal nodule measuring 2.9 x 1.8 cm and 14 Hounsfield units. IMPRESSION: 1. No evidence of pulmonary embolism. 2. Bilateral pleural effusions with pulmonary vascular congestion correlate for with BNP. 3. Mild emphysema changes. 4. Indeterminate left adrenal nodule. This can be completely characterized with MRI or CT adrenal mas s protocol.
[2023-01-10] MEDS ORDERED: HEPARIN SODIUM 1,000 UN/ML (10ML VL) IV PRN (10:01)
[2023-01-10] MEDS ORDERED: HEPARIN SODIUM 1,000 UN/ML (10ML VL) IV ONE (10:01)
[2023-01-10] MEDS ORDERED: NITROGLYCERIN SL TABS 0.4 MG TAB SUBLINGUAL PRN (10:01)
[2023-01-10] MEDS ORDERED: HEPARIN SOD,PORK IN 0.45% NACL 25,000 UNIT in 0.45% NACL 1 250ML.BAG IV SCH (10:15)
--- NOTE | 2023-01-10 11:49 | CA ---
Transthoracic Echo Report Name: Alysha Aburto Age: 67 Gender: F : 1955 Exam Date: 01/10/2023 10:03 Exam Location: [facility] Ht (in): 62 Wt (lb): 140 Ordering Physician: Joshua Alvarez Attending/Referring Phys: [id number], Antonio Counter Former Dayan Desai RDCS Procedure CPT: Indications: Chest Pain Cardiac Hx: Technical Quality: Good Contrast 1: Total Dose (mL): Contrast 2: Total Dose (mL): MEASUREMENTS (Male / Female) Normal Values 2D ECHO LV Diastolic Diameter PLAX 3.3 cm 4.2 - 5.9 / 3.9 - 5.3 cm LV Systolic Diameter PLAX 2.5 cm IVS Diastolic Thickness 1.0 cm 0.6 - 1.0 / 0.6 - 0.9 cm LVPW Diastolic Thickness 1.1 cm 0.6 - 1.0 / 0.6 - 0.9 cm LV Relative Wall Thickness 0.6 RV Internal Dim ED PLAX 2.8 cm LA Systolic Diameter LX 3.4 cm 3.0 - 4.0 / 2.7 - 3.8 cm LV Diastolic Volume MOD 4C 66.2 cm??? LV Systolic Volume MOD 4C 24.9 cm??? LV Ejection Fraction MOD 4C 62.4 % LV Diastolic Length 4C 8.8 cm LV Systolic Length 4C 7.0 cm LV Diastolic Volume MOD 2C 73.7 cm??? LV Systolic Volume MOD 2C 24.1 cm??? LV Ejection Fraction MOD 2C 67.3 % LV Diastolic Length 2C 8.6 cm LV Systolic Length 2C 6.6 cm LA Volume 40.7 cm??? 18 - 58 / 22 - 52 cm??? M-MODE Aortic Root Diameter MM 3.1 cm MV E Point Septal Separation 0.4 cm AV Cusp Separation MM 1.9 cm DOPPLER AV Peak Velocity 164.1 cm/s AV Peak Gradient 10.8 mmHg MV Area PHT 5.9 cm??? Mitral E Point Velocity 142.9 cm/s Mitral A Point Velocity 86.9 cm/s Mitral E to A Ratio 1.6 MV Deceleration Time 128.8 ms MV E' Velocity 11.5 cm/s Mitral E to MV E' Ratio 12.4 TR Peak Velocity 248.9 cm/s TR Peak Gradient 24.8 mmHg Right Ventricular Systolic Press 29.8 mmHg FINDINGS Left Ventricle Left ventricular ejection fraction is estimated at 60-65 %. Small left ventricular cavity. Borderline left ventricular hypertrophy. No obvious regional wall motion abnormalities. Right Ventricle Normal right ventricular size and function. Right ventricular systolic pressure within normal limits. Right Atrium Normal right atrial size. Left Atrium Normal left atrial size. Mitral Valve Mitral valve thickened. Mitral annular calcification. Mild to moderate mitral regurgitation. Aortic Valve Trileaflet aortic valve. No aortic valve stenosis or regurgitation. Tricuspid Valve Structurally normal tricuspid valve. Mild tricuspid regurgitation. Pulmonic Valve Structurally normal pulmonic valve. Trace pulmonic regurgitation. Pericardium Normal pericardium. No pericardial effusion. Aorta Normal size aortic root and proximal ascending aorta. CONCLUSIONS Normal LV systolic function Mild to moderate mitral regurgitation Previewed by: Dr. Israel Harley MD (Electronically Signed) Final Date: 10 January 2023 11:48
[2023-01-10] MEDS ORDERED: predniSONE 10 MG TAB PO SCH (15:30)
--- NOTE | 2023-01-10 16:15 | P.CRDCN ---
History of Present Illness History of present illness: HISTORY OF PRESENTING ILLNESS This is a pleasant 67 year-old female past medical history significant for psoriasis, peripheral vascular disease status post left ICA stenting 2, hy pertension, hyperlipidemia, left bundle branch block and chronic nicotine dependence-. She follows in the office with Dr. Harley. We have been asked to see in consultation for chest pain. She was just discharged from the hospital with an acute exacerbation of psoriasis and put on steroids. She was at home and developed pain in the chest and shortness of breath. She states the pain is substernal and wrapping around worse with deep breathing. EKG reveals sinus rhythm with left bundle branch block heart rate of 87. Chest x-ray revealed minimal bibasilar airspace opacities. CTA is negative for pulmonary embolism with bilateral pleural effusions noted. Laboratory data reviewed, WBC 21.3, he moglobin 13.3, platelets 236, d-dimer 2.01, sodium 139, potassium 4, creatinine 0.78, magnesium 2.3, troponin 0.027, 0.055, 0.058 and NT proBNP 2340. Current cardiac medications include aspirin 81 mg daily, atorvastatin 40 mg daily, Plavix 75 mg daily, Toprol 25 mg daily and lisinopril 2.5 mg daily. Echocardiogram was performed today revealing preserved LV systolic function with ejection fraction 60-65% with a small LV, there is no pericardial effusion, mild to moderate MR noted. She had cardiac catheterization performed July 2020 revealing normal coronary arteries. REVIEW OF SYSTEMS At the time of my exam: CONSTITUTIONAL: Denies fever or chills. CARDIOVASCULAR: Complains of pleuritic chest pain and shortness of breath. Denies orthopnea, PND or palpitations. RESPIRATORY: Denies cough. GASTROINTESTINAL: Denies abdominal pain, diarrhea, constipation, nausea or vomiting. MUSCULOSKELETAL: Denies myalgias. NEUROLOGIC: Denies numbness, tingling, headache or weakness. ENDOCRINE: Denies fatigue, weight change, polydipsia or polyurina. GENITOURINARY: Denies burning, hematuria or urgency with micturation. HEMATOLOGIC: Denies history of anemia or bleeding. PHYSICAL EXAMINATION Blood pressure 149/69 heart rate 90 afebrile and maintaining oxygen saturation on room air. CONSTITUTIONAL: No apparent distress. Multiple areas of erythema and patchy psoriatic rashes throughout her body. HEENT: Head is normocephalic. Pupils are equal, round. Sclerae anicteric. Mucous membranes of the mouth are moist. No JVD. No carotid bruit. CHEST EXAMINATION: Lungs are clear to auscultation. No chest wall tenderness is noted on palpation or with deep breathing. HEART EXAMINATION: Regular rate and rhythm. S1, S2 heard. No murmurs, gallops or rub. ABDOMEN: Soft, nontender. EXTREMITIES: 2+ peripheral pulses, no lower extremity edema and no calf tenderness. NEUROLOGIC EXAMINATION: Patient is awake, alert and oriented x3. ASSESSMENT Chest pain, pleuritic and noncardiac Mild troponin elevation of unclear significance with flat appearance Psoriasis Leukocytosis Peripheral vascular disease Hypertension Dyslipidemia Left bundle branch block Chronic nicotine dependence PLAN Obtain stat troponin. Discontinue heparin infusion and placed on subcu heparin. Chest pain appears noncardiac with flat troponins and normal echo. Undergoing evaluation by primary care team. Thank you kindly for this consultation. Nurse Practitioner note has been reviewed, I agree with a documented findings a nd plan of care. Patient was seen and examined. Past Medical History Past Medical History: COPD, Hyperlipidemia, Hypertension, Osteoarthritis (OA), Skin Disorder Additional Past Medical History / Comment(s): Psoriasis. See Dr Harley's H&P. Recent left arm numbness and tingling, irregular heartbeat, chest feels heavy X last 3-4 weeks periodically. History of Any Multi-Drug Resistant Organisms: None Reported Past Surgical History: Heart Catheterization, Orthopedic Surgery, Tonsillectomy Additional Past Surgical History / Comment(s): Neck surgery C5/6/7 plate placement. Carotid stent x2 09/21 Past Anesthesia/Blood Transfusion Reactions: No Reported Reaction Past Psychological History: No Psychological Hx Reported Smoking Status: Current every day smoker Past Alcohol Use History: None Reported Additional Past Alcohol Use History / Comment(s): Has been smoking 1 PPD since her early 20s. DOWN TO 4-5 CIGARETTES DAILY-WORKING ON QUITTING Past Drug Use History: None Reported - Past Family History Mother Family Medical History: No Reported History Medications and Allergies Home Medications Medication Instructions Recorded Confirmed Type Aspirin [Adult Low Dose Aspirin EC] 81 mg PO DAILY 08/05/20 01/10/23 History Metoprolol Succinate (ER) [Toprol 25 mg PO DAILY 09/14/20 01/10/23 History XL] Clopidogrel [Plavix] 75 mg PO DAILY #30 tab 09/22/20 01/10/23 Rx Atorvastatin [Lipitor] 40 mg PO DAILY 01/07/23 01/10/23 History lisinopriL [Zestril] 2.5 mg PO DAILY 01/07/23 01/10/23 History Cephalexin [Keflex] 500 mg PO Q6HR 10 Days #40 cap 01/09/23 01/10/23 Rx HYDROcodone/APAP 10-325MG [[place] 1 tab PO Q6HR PRN 3 Days #12 tab 01/09/23 01/10/23 Rx 10-325] hydrOXYzine HCL [Atarax] 25 mg PO QID tab 01/09/23 01/10/23 Rx predniSONE See Taper PO DAILY 01/10/23 01/10/23 History Allergies Allergy/AdvReac Type Severity Reaction Status Date / Time No Known Allergies Allergy Verified 01/10/23 08:59 Physical Exam Vitals: Vital Signs Temp Pulse Pulse Resp BP BP Pulse Ox 01/10/23 14:45 98.1 F 90 16 149/69 96 01/10/23 13:42 85 17 120/57 94 L 01/10/23 12:28 98.3 F 80 16 142/73 95 01/10/23 10:29 84 14 140/68 95 01/10/23 07:28 97.8 F 100 24 158/75 99 Intake and Output 01/10/23 01/10/23 01/10/23 06:59 14:59 22:59 Other: Weight 65.5 kg Results 01/10/23 07:43 01/10/23 07:43 Cardiac Enzymes 01/10/23 01/10/23 01/10/23 Range/Units 07:43 07:43 10:43 AST 51 H (14-36) U/L Troponin I 0.027 0.055 H* (0.000-0.034) ng/mL 01/10/23 Range/Units 12:20 AST (14-36) U/L Troponin I 0.058 H* (0.000-0.034) ng/mL Coagulation 01/10/23 Range/Units 07:43 PT 10.3 (9.0-12.0) sec APTT 19.9 L (22.0-30.0) sec CBC 01/10/23 Range/Units 07:43 WBC 21.3 H (3.8-10.6) k/uL RBC 4.81 (3.80-5.40) m/uL Hgb 13.3 (11.4-16.0) gm/dL Hct 40.8 (34.0-46.0) % Plt Count 236 (150-450) k/uL Comprehensive Metabolic Panel 01/10/23 Range/Units 07:43 Sodium 139 (137-145) mmol/L Potassium 4.0 (3.5-5.1) mmol/L Chloride 106 (98-107) mmol/L Carbon Dioxide 26 (22-30) mmol/L BUN 23 H (7-17) mg/dL Creatinine 0.78 (0.52-1.04) mg/dL Glucose 91 (74-99) mg/dL Calcium 8.8 (8.4-10.2) mg/dL AST 51 H (14-36) U/L ALT 90 H (4-34) U/L Alkaline Phosphatase 90 (38-126) U/L Total Protein 6.3 (6.3-8.2) g/dL Albumin 3.8 (3.5-5.0) g/dL Current Medications Generic Name Dose Route Start Last Admin Trade Name Freq PRN Reason Stop Dose Admin Hydrocodone Bitart/Acetaminophen 1 each 01/10/23 15:13 Hydrocodone/Apap 10-325mg 1 Each Tab PO Q6HR PRN Pain Aspirin 81 mg 01/11/23 09:00 Aspirin 81 Mg PO DAILY [facility] Atorvastatin Calcium 40 mg 01/10/23 15:30 Atorvastatin 40 Mg Tab PO DAILY [facility] Cephalexin 500 mg 01/10/23 18:00 Cephalexin 500 Mg Cap PO 01/19/23 23:00 Q6HR [facility] Protocol Clopidogrel Bisulfate 75 mg 01/10/23 15:30 Clopidogrel 75 Mg Tab PO DAILY [facility] Heparin Sodium (Porcine) 0 unit 01/10/23 10:01 Heparin Sodium 1,000 Un/Ml (10ml Vl) IV Q6HR PRN Low PTT Protocol Hydroxyzine HCl 25 mg 01/10/23 18:00 Hydroxyzine Hcl 25 Mg Tab PO QID [facility] Heparin Sodium/Sodium Chloride 250 mls @ 7.62 mls/hr 01/10/23 10:15 01/10/23 11:08 25,000 unit/ Sodium Chloride IV 12 units/kg/hr .Q24H [facility] 7.62 mls/hr Administration Protocol 12 UNITS/KG/HR Lisinopril 2.5 mg 01/10/23 15:30 Lisinopril 2.5 Mg Tab PO DAILY [facility] Metoprolol Succinate 25 mg 01/10/23 15:30 Metoprolol Succinate (Er) 25 Mg Tab.Er.24h PO DAILY [facility] Nitroglycerin 0.4 mg 01/10/23 10:01 Nitroglycerin Sl Tabs 0.4 Mg Tab SUBLINGUAL Q5M PRN Chest Pain Prednisone 60 mg 01/10/23 15:30 Prednisone 20 Mg Tab PO DAILY [facility] Intake and Output 01/10/23 01/10/23 01/10/23 06:59 14:59 22:59 Other: Weight 65.5 kg Patient Weight 01/11/23 06:59 Weight 65.5 kg 01/10/23 07:43 01/10/23 07:43
[2023-01-10] MEDS: HYDROcodone/APAP 10-325MG 1 EACH TAB PO PRN (16:56)
[2023-01-10] MEDS: METOPROLOL SUCCINATE (ER) 25 MG TAB.ER.24H PO SCH (16:57)
[2023-01-10] MEDS: CEPHALEXIN 500 MG CAP PO SCH ×2 (16:57→23:20)
[2023-01-10] MEDS: CLOPIDOGREL 75 MG TAB PO SCH (16:57)
[2023-01-10] MEDS: predniSONE 20 MG TAB PO SCH (16:57)
[2023-01-10] MEDS: ATORVASTATIN 40 MG TAB PO SCH (16:58)
[2023-01-10] MEDS: hydrOXYzine HCL 25 MG TAB PO SCH ×2 (17:00→20:47)
--- NOTE | 2023-01-10 17:03 | P.HPIM ---
History of Present Illness H&P Date: 01/10/23 Alysha Aburto, is a 67-year-old female who presented to [facility] emergency room with a chief complaint of chest pain. Patient was recently admitted to the hospital with acute exacerbation of psoriasis with cellulitis, she was treated with IV steroids and IV antibiotic and was di scharged home on oral antibiotic and oral steroid course. She returned to the hospital with an episode of chest pain. She was evaluated in the emergency room vital examination on presentation revealed a temperature of 97.8 pulse 100 respiration 24 blood pressure 158/75 pulse ox 99% on room air Laboratory data revealed a white blood count of 21.3 hemoglobin 13.3 platelet count 236 d-dimer 2.01 sodium 139 potassium 4.0 chloride 106 CO2 26 BUN 23 creatinine 0.78 troponin level 0.027 and 0.055 BNP 2340 Testing in the emergency room revealed CT angiogram negative for pulmonary embolism, however it revealed indeterminate left adrenal nodule. Patient was admitted to medical floor for further evaluation and treatment Past Medical History Past Medical History: COPD, Hyperlipidemia, Hypertension, Osteoarthritis (OA), Skin Disorder Additional Past Medical History / Comment(s): Psoriasis. See Dr Harley's H&P. Recent left arm numbness and tingling, irregular heartbeat, chest feels heavy X last 3-4 weeks periodically. History of Any Multi-Drug Resistant Organisms: None Reported Past Surgical History: Heart Catheterization, Orthopedic Surgery, Tonsillectomy Additional Past Surgical History / Comment(s): Neck surgery C5/6/7 plate placement. Carotid stent x2 09/21 Past Anesthesia/Blood Transfusion Reactions: No Reported Reaction Past Psychological History: No Psychological Hx Reported Smoking Status: Current every day smoker Past Alcohol Use History: None Reported Additional Past Alcohol Use History / Comment(s): Has been smoking 1 PPD since her early 20s. DOWN TO 4-5 CIGARETTES DAILY-WORKING ON QUITTING Past Drug Use History: None Reported - Past Family History Mother Family Medical History: No Reported History Medications and Allergies Home Medications Medication Instructions Recorded Confirmed Type Aspirin [Adult Low Dose Aspirin EC] 81 mg PO DAILY 08/05/20 01/10/23 History Metoprolol Succinate (ER) [Toprol 25 mg PO DAILY 09/14/20 01/10/23 History XL] Clopidogrel [Plavix] 75 mg PO DAILY #30 tab 09/22/20 01/10/23 Rx Atorvastatin [Lipitor] 40 mg PO DAILY 01/07/23 01/10/23 History lisinopriL [Zestril] 2.5 mg PO DAILY 01/07/23 01/10/23 History Cephalexin [Keflex] 500 mg PO Q6HR 10 Days #40 cap 01/09/23 01/10/23 Rx HYDROcodone/APAP 10-325MG [[place] 1 tab PO Q6HR PRN 3 Days #12 tab 01/09/23 01/10/23 Rx 10-325] hydrOXYzine HCL [Atarax] 25 mg PO QID tab 01/09/23 01/10/23 Rx predniSONE See Taper PO DAILY 01/10/23 01/10/23 History Allergies Allergy/AdvReac Type Severity Reaction Status Date / Time No Known Allergies Allergy Verified 01/10/23 08:59 Physical Exam Vitals: Vital Signs Temp Pulse Pulse Resp BP BP Pulse Ox 01/10/23 14:45 98.1 F 90 16 149/69 96 01/10/23 13:42 85 17 120/57 94 L 01/10/23 12:28 98.3 F 80 16 142/73 95 01/10/23 10:29 84 14 140/68 95 01/10/23 07:28 97.8 F 100 24 158/75 99 Intake and Output 01/10/23 01/10/23 01/10/23 06:59 14:59 22:59 Other: Weight 65.5 kg In general patient is alert and oriented x 3 in no distress HEENT head normocephalic and atraumatic Neck is supple no JVD no goiter no lymphadenopathy no carotid bruit Chest examination is clear to auscultation no crackles no wheezing Cardiac exam reveals regular heart sounds S1 and S2 no gallops no murmurs Abdomen is soft nontender no organomegaly with normal bowel sounds Extremity exam reveals no edema no cyanosis or clubbing Neurological examination reveals no gross focal deficits Results CBC & Chem 7: 01/10/23 07:43 01/10/23 07:43 Labs: Abnormal Lab Results - Last 24 Hours (Table) 01/10/23 01/10/23 01/10/23 Range/Units 07:43 07:43 07:43 WBC 21.3 H (3.8-10.6) k/uL Neutrophils # 17.8 H (1.3-7.7) k/uL Monocytes # 1.4 H (0-1.0) k/uL APTT 19.9 L (22.0-30.0) sec D-Dimer 2.01 H (<0.60) mg/L FEU BUN 23 H (7-17) mg/dL AST 51 H (14-36) U/L ALT 90 H (4-34) U/L Troponin I (0.000-0.034) ng/mL 01/10/23 01/10/23 Range/Units 10:43 12:20 WBC (3.8-10.6) k/uL Neutrophils # (1.3-7.7) k/uL Monocytes # (0-1.0) k/uL APTT (22.0-30.0) sec D-Dimer (<0.60) mg/L FEU BUN (7-17) mg/dL AST (14-36) U/L ALT (4-34) U/L Troponin I 0.055 H* 0.058 H* (0.000-0.034) ng/mL Thrombosis Risk Factor Assmnt - Choose All That Apply Each Factor Represents 1 point: Swollen legs (current) Each Risk Factor Represents 2 Points: Age 61-74 years Other congenital or acquired thrombophilia - If yes, enter type in comment: No Thrombosis Risk Factor Assessment Total Risk Factor Score: 3 Thrombosis Risk Factor Assessment Level: Moderate Risk Assessment and Plan Plan: Episode of chest pain Elevated d-dimer with normal CT angiogram of the chest without evidence of pulmonary embolism Cellulitis of the bilateral wrists and forearms Severe exacerbation of psoriasis Underlying history of hypertension Underlying history of hyperlipidemia Known history of left bundle branch block Underlying history of tobacco abuse Left and adrenal gland nodule apparent on CT angiogram of the chest, patient will need further evaluation as outpatient At this time patient is admitted to telemetry floor She was started on IV heparin in the emergency room Serial EKG and cardiac enzymes ordered, echocardiogram ordered Home medications reviewed and reordered Cardiology consultation requested Will follow
[2023-01-10] MEDS: SODIUM CHLORIDE 0.9% 1,000 ML IV SCH (18:53)
[2023-01-10] MEDS: HEPARIN SODIUM,PORCINE/PF 5,000 UNIT/0.5 ML SYRINGE SQ SCH (20:47)
[2023-01-11 03:44] VITALS: RESP 18
[2023-01-11] MEDS: CEPHALEXIN 500 MG CAP PO SCH ×2 (05:50→08:25)
[2023-01-11 08:23] VITALS: TEMP 98
[2023-01-11] MEDS: ATORVASTATIN 40 MG TAB PO SCH (08:25)
[2023-01-11] MEDS: hydrOXYzine HCL 25 MG TAB PO SCH ×2 (08:25→11:42)
[2023-01-11] MEDS: CLOPIDOGREL 75 MG TAB PO SCH (08:25)
[2023-01-11] MEDS: METOPROLOL SUCCINATE (ER) 25 MG TAB.ER.24H PO SCH (08:25)
[2023-01-11] MEDS: predniSONE 20 MG TAB PO SCH (08:25)
[2023-01-11] MEDS: HEPARIN SODIUM,PORCINE/PF 5,000 UNIT/0.5 ML SYRINGE SQ SCH (08:25)
[2023-01-11] MEDS: HYDROcodone/APAP 10-325MG 1 EACH TAB PO PRN (08:30)
[2023-01-11] MEDS ORDERED: ASPIRIN 325 MG TAB PO SCH (09:00)
[2023-01-11] MEDS ORDERED: ASPIRIN 81 MG PO SCH (09:00)
[2023-01-11] MEDS ORDERED: FUROSEMIDE 10 MG/ML 2 ML VIAL IV STA (10:40)
[2023-01-11] MEDS ORDERED: PANTOPRAZOLE 40 MG TABLET PO SCH (10:45)
--- NOTE | 2023-01-11 11:05 | PN ---
PROGRESS NOTE SUBJECTIVE: This lady has come into the hospital with abdominal pain. She has no chest pain. Troponin profile is not suggestive of myocardial injury. Echo revealed vigorous contractility. I do not believe we are dealing with any active cardiac problem. I would not recommend any intervention at this time. OBJECTIVE: VITAL SIGNS: Stable. HEART: S1 and S2 heard normally. Short systolic murmur noted. LUNGS: Clear. ABDOMEN: Unchanged. LOWER EXTREMITIES: Unchanged. She had unremarkable cardiac cath in the fall of 2019, and also had left carotid stenting. I do not believe we are dealing with any acute ischemic picture. I am recommending that we continue current medications and based on clinical course, I will come back and re-evaluate her again. Her symptoms seem very atypical and troponin profile is not suggestive of a myocardial injury. She may be having a flu-like illness. CT angiogram was negative for any pulmonary embolism. I will continue to see her as needed. MMODL / IJN: [id number] /
--- NOTE | 2023-01-11 11:32 | P.PN ---
Subjective Progress Note Date: 01/11/23 Alysha Aburto, is a 67-year-old female who presented to [facility] emergency room with a chief complaint of chest pain. Patient was recently admitted to the hospital with acute exacerbation of psoriasis with cellulitis, she was treated with IV steroids and IV antibiotic and was discharge d home on oral antibiotic and oral steroid course. She returned to the hospital with an episode of chest pain. She was evaluated in the emergency room vital examination on presentation revealed a temperature of 97.8 pulse 100 respiration 24 blood pressure 158/75 pulse ox 99% on room air Laboratory data revealed a white blood count of 21.3 hemoglobin 13.3 platelet count 236 d-dimer 2.01 sodium 139 potassium 4.0 chloride 106 CO2 26 BUN 23 creatinine 0.78 troponin level 0.027 and 0.055 BNP 2340 Testing in the emergency room revealed CT angiogram negative for pulmonary embolism, however it revealed indeterminate left adrenal nodule. Patient was admitted to medical floor for further evaluation and treatment On 01/11/2023 patient is alert and oriented 3. Patient reports improvement with chest pain. No further workup per cardiology services. Ultrasound of abdomen has been ordered. Patient also given 1 dose of IV Lasix per pulmonary. Anticipate possible discharge later today or tomorrow. At this time patient denies chest pain or shortness breath. Patient denies nausea vomiting or d iarrhea. Patient denies any urinary burning or frequency Objective - Vital Signs Vital signs: Vital Signs Temp 98 F 01/11/23 08:00 Pulse 80 01/11/23 08:00 Resp 18 01/11/23 08:00 BP 155/67 01/11/23 08:00 Pulse Ox 98 01/11/23 08:49 FiO2 Intake & Output 01/10/23 01/11/23 01/11/23 18:59 06:59 18:59 Intake Total 118 50 118 Balance 118 50 118 Weight 65.5 kg 65.5 kg Intake: IV 50 Sodium Chloride 0.9% 500 50 ml 500 ml @ 999 mls/hr IV .Q31M STA Rx#:[id number] Oral 118 118 Other: # Voids 2 2 - Exam In general patient is alert and oriented x 3 in no distress HEENT head normocephalic and atraumatic Neck is supple no JVD no goiter no lymphadenopathy no carotid bruit Chest examination is clear to auscultation no crackles no wheezing Cardiac exam reveals regular heart sounds S1 and S2 no gallops no murmurs Abdomen is soft nontender no organomegaly with normal bowel sounds Extremity exam reveals no edema no cyanosis or clubbing Neurological examination reveals no gross focal deficits - Labs CBC & Chem 7: 01/10/23 07:43 01/10/23 07:43 Labs: Abnormal Lab Results - Last 24 Hours (Table) 01/10/23 01/10/23 01/10/23 Range/Units 10:43 12:20 16:37 APTT 37.3 H (22.0-30.0) sec Troponin I 0.055 H* 0.058 H* (0.000-0.034) ng/mL 01/10/23 Range/Units 16:37 APTT (22.0-30.0) sec Troponin I 0.040 H* (0.000-0.034) ng/mL Assessment and Plan Plan: Episode of chest pain. Per cardiology troponin profile is not suggestive of myocardial injury Elevated d-dimer with normal CT angiogram of the chest without evidence of pulmonary embolism Cellulitis of the bilateral wrists and forearms Severe exacerbation of psoriasis Underlying history of hypertension Underlying history of hyperlipidemia Known history of left bundle branch block Underlying history of tobacco abuse Left and adrenal gland nodule apparent on CT angiogram of the chest, patient will need further evaluation as outpatient At this time patient is admitted to telemetry floor no further workup inpatient per cardiology Ultrasound of abdomen ordered 1 dose of IV Lasix given per pulmonary Will follow
[2023-01-11 11:37] VITALS: BP 163/76; PULSE 66
--- NOTE | 2023-01-11 14:07 | P.CNPUL ---
History of Present Illness Consult date: 01/11/23 Requesting physician: Chavo Velazquez Reason for consult: other (Chest pain) Chief complaint: Chest pain History of present illness: This is a 67-year-old female with history of psoriasis, peripheral vessel occlusive disease, hypertension, dyslipidemia, chronic nicotine dependence, patient was recently in the hospital for acute exacerbation of psoriasis, and she was discharged home on relatively high-dose of prednisone burst and taper. Yesterday, the patient developed an episode of chest pain and shortness of breath, described as pain in the sub-xiphoid area and felt like pressure at times difficult to take a deep breath. She also describes it as a cramping pain around and made it difficult to breathe. CT angiogram of the chest showed no evidence of pulmonary embolism, there was small tiny bilateral pleural effusions, patient was also noted to have leukocytosis, slightly elevated d-d rickie, and elevated pro BNP level. Patient was seen already by cardiology, and felt that her pain is noncardiac in nature, she had good LV function based on a recent echocardiogram, and she had normal coronaries back in July. I reviewed the CT of the chest, clearly the findings on the CT of the chest do not correlate with her chest pain symptoms, and I felt that her chest pain is atypic al, most likely GI related. Nonetheless considering the patient had bilateral pleural effusions, and relatively elevated BNP level, I recommended gentle diuresis/ diuretics. In the meantime she'll receive 1 dose of Lasix the findings on the CT of the test again are very nonspecific. But clearly there is no evidence of pulmonary embolism and no evidence of pneumonia. During my evaluation of the patient, she had no chest pain whatsoever and she was feeling fine. Review of Systems CONSTITUTIONAL: No weight loss no fever no chills CARDIOVASCULAR: As noted in HPI RESPIRATORY: As noted in HPI. GASTROINTESTINAL: Epigastric discomfort, may have been exacerbated by the fact that the patient was recently on prednisone relatively high-dose. MUSCULOSKELETAL: Negative. Skin: History of psoriasis NEUROLOGIC: Negative. ENDOCRINE: Negative. GENITOURINARY: Negative. HEMATOLOGIC: Negative Psychiatric: No symptoms of active depression Past Medical History Past Medical History: COPD, Hyperlipidemia, Hypertension, Osteoarthritis (OA), Skin Disorder Additional Past Medical History / Comment(s): Psoriasis. See Dr Harley's H&P. Recent left arm numbness and tingling, irregular heartbeat, chest feels heavy X last 3-4 weeks periodically. History of Any Multi-Drug Resistant Organisms: None Reported Past Surgical History: Heart Catheterization, Orthopedic Surgery, Tonsillectomy Additional Past Surgical History / Comment(s): Neck surgery C5/6/7 plate placement. Carotid stent x2 09/21 Past Anesthesia/Blood Transfusion Reactions: No Reported Reaction Past Psychological History: No Psychological Hx Reported Smoking Status: Current every day smoker Past Alcohol Use History: None Reported Additional Past Alcohol Use History / Comment(s): Has been smoking 1 PPD since her early . DOWN TO 4-5 CIGARETTES DAILY-WORKING ON QUITTING Past Drug Use History: None Reported - Past Family History Mother Family Medical History: No Reported History Medications and Allergies Home Medications Medication Instructions Recorded Confirmed Type Aspirin [Adult Low Dose Aspirin EC] 81 mg PO DAILY 08/05/20 01/10/23 History Metoprolol Succinate (ER) [Toprol 25 mg PO DAILY 09/14/20 01/10/23 History XL] Clopidogrel [Plavix] 75 mg PO DAILY #30 tab 09/22/20 01/10/23 Rx Atorvastatin [Lipitor] 40 mg PO DAILY 01/07/23 01/10/23 History lisinopriL [Zestril] 2.5 mg PO DAILY 01/07/23 01/10/23 History Cephalexin [Keflex] 500 mg PO Q6HR 10 Days #40 cap 01/09/23 01/10/23 Rx HYDROcodone/APAP 10-325MG [[place] 1 tab PO Q6HR PRN 3 Days #12 tab 01/09/23 01/10/23 Rx 10-325] hydrOXYzine HCL [Atarax] 25 mg PO QID tab 01/09/23 01/10/23 Rx predniSONE See Taper PO DAILY 01/10/23 01/10/23 History Allergies Allergy/AdvReac Type Severity Reaction Status Date / Time No Known Allergies Allergy Verified 01/10/23 08:59 Physical Exam Vitals: Vital Signs Temp Pulse Resp BP Pulse Ox 01/11/23 11:36 66 18 163/76 97 01/11/23 08:49 98 01/11/23 08:00 98 F 80 18 155/67 98 01/11/23 03:43 61 18 131/65 97 01/10/23 23:20 66 17 128/67 96 01/10/23 20:15 97.9 F 82 17 132/64 95 01/10/23 14:45 98.1 F 90 16 149/69 96 Intake and Output 01/10/23 01/11/23 01/11/23 22:59 06:59 14:59 Intake Total 168 118 Balance 168 118 Intake: IV 50 Sodium Chloride 0.9% 500 50 ml 500 ml @ 999 mls/hr IV .Q31M STA Rx#:[id number] Oral 118 118 Other: # Voids 2 Weight 65.5 kg Physical Exam: Revealed 67-year-old female in no distress. Head: Atraumatic, normocephalic. HEENT:[Neck is supple.] [No neck masses.] [No thyromegaly.] [No JVD.] Chest: [Clear throughout, no crackles, no rhonchi, no wheezes.] Cardiac Exam: [Normal S1 and S2, no S3 gallop, no murmur.] Abdomen: [Soft, nontender, no megaly, no rebound, no guarding, normal bowel sounds.] Extremities: [No clubbing, trace of bipedal edema, no cyanosis.] Neurological Exam: [No focal neurologic deficit.] Skin: Multiple areas of psoriatic lesions involving upper and lower extremities. Results - Laboratory Findings CBC and BMP: 01/10/23 07:43 01/10/23 07:43 PT/INR, D-dimer PT 10.3 sec (9.0-12.0) 01/10/23 07:43 INR 1.0 (<1.2) 01/10/23 07:43 D-Dimer 2.01 mg/L FEU (<0.60) H 01/10/23 07:43 Abnormal lab findings: Abnormal Labs 01/10/23 01/10/23 01/10/23 07:43 07:43 07:43 WBC 21.3 H Neutrophils # 17.8 H Monocytes # 1.4 H APTT 19.9 L D-Dimer 2.01 H BUN 23 H AST 51 H ALT 90 H Troponin I 01/10/23 01/10/23 01/10/23 10:43 12:20 16:37 WBC Neutrophils # Monocytes # APTT 37.3 H D-Dimer BUN AST ALT Troponin I 0.055 H* 0.058 H* 01/10/23 16:37 WBC Neutrophils # Monocytes # APTT D-Dimer BUN AST ALT Troponin I 0.040 H* - Diagnostic Findings CT scan - chest: image reviewed (As noted in HPI) Assessment and Plan Assessment: Impression: Atypical chest pain, strongly suspect that it is GI related/in nature. History of underlying COPD Nonspecific small bilateral pleural effusions with elevated BNP hence a trial of gentle diuresis is appropriate. Tobacco dependence syndrome History of psoriasis Peripheral vessel occlusive disease Dyslipidemia History of left bundle branch block Leukocytosis secondary to high doses of steroids started recently for her psoriasis. Recommendation: Resume home meds Continue steroids for her psoriasis Gentle diuresis, the findings of pleural effusion and bipedal edema wouldn't justify a trial of diuretics. Continue bronchodilators Will start the patient on omeprazole 20 mg twice a day If symptoms persist or recur may need a GI evaluation and EGD. We'll clear the patient for discharge if cleared by other consultants Time with Patient: Greater than 30
[2023-01-11] MEDS: SODIUM CHLORIDE 0.9% 1,000 ML IV SCH (15:17)
--- NOTE | 2023-01-11 16:20 | US ---
EXAMINATION TYPE: US abdomen limited DATE OF EXAM: 01/11/2023 COMPARISON: CTA chest January 10, 2023 CLINICAL HISTORY: lower abdominal pain. lower abd pain TECHNIQUE: Multiple sonographic images of the right upper quadrant are obtained. FINDINGS: EXAM MEASUREMENTS: Liver Length: 15.6 cm Gallbladder Wall: 0.2 cm CBD: 0.7 cm Right Kidney: 10.1 x 3.7 x 3.2 cm Pancreas: wnl Liver: Increased attenuation Gallbladder: wnl Evidence for sonographic Strong's sign: no CBD: wnl Right Kidney: wnl incidental right pleural effusion noted. Heterogeneous hyperechoic appearance of liver likely on ba sis of diffuse fatty infiltration. IMPRESSION: No shadowing mobile gallstones or ultrasound evidence for acute cholecystitis.
--- NOTE | 2023-01-11 16:26 | P.DS ---
Providers Date of admission: 01/10/23 10:30 Expected date of discharge: 01/11/23 Attending physician: Chavo Velazquez Consults: 01/10/23 10:01 Consult Physician Urgent Consulting Provider: Israel Harley Consult Reason/Comments: chest pain Do you want consulting provider notified?: Yes 01/10/23 17:04 Consult Physician Routine Consulting Provider: Ute Espinosa Consult Reason/Comments: Shortness of breath Do you want consulting provider notified?: Yes Primary care physician: Lesley Balbuena Hospital Course: Diagnosis on discharge: Episode of chest pain. Per cardiology troponin profile is not suggestive of myocardial injury Elevated d-dimer with normal CT angiogram of the chest without evidence of pulmonary embolism Cellulitis of the bilateral wrists and forearms Severe exacerbation of psoriasis Underlying history of hypertension Underlying history of hyperlipidemia Known history of left bundle branch block Underlying history of tobacco abuse Left and adrenal gland nodule apparent on CT angiogram of the chest, patient will need further evaluation as outpatient Hospital course: Alysha Aburto, is a 67-year-old female who presented to [facility] emergency room with a chief complaint of chest pain. Patient was recently admitted to the hospital with acute exacerbation of psoriasis with cellulitis, she was treated with IV steroids and IV antibiotic and was discharged home on oral antibiotic and oral steroid course. She returned to the hospital with an episode of chest pain. She was evaluated in the emergency room vital examination on presentation revealed a temperature of 97.8 pulse 100 respiration 24 blood pressure 158/75 pulse ox 99% on room air Laboratory data revealed a white blood count of 21.3 hemoglobin 13.3 platelet count 236 d-dimer 2.01 sodium 139 potassium 4.0 chloride 106 CO2 26 BUN 23 creatinine 0.78 troponin level 0.027 and 0.055 BNP 2340 Testing in the emergency room revealed CT angiogram negative for pulmonary embolism, however it revealed indeterminate left adrenal nodule. Patient was admitted to medical floor for further evaluation and treatment On 01/11/2023 patient is alert and oriented 3. Patient reports improvement with chest pain. No further workup per cardiology services. Ultrasound of abdomen has been ordered. Patient also given 1 dose of IV Lasix per pulmonary. Anticipate possible discharge later today or tomorrow. At this time patient denies chest pain or shortness breath. Patient denies nausea vomiting or diarrhea. Patient denies any urinary burning or frequency Patient Condition at Discharge: Fair Plan - Discharge Summary New Discharge Prescriptions: New Pantoprazole [Protonix] 40 mg PO AC-BID tab Nitroglycerin Sl Tabs [Nitrostat] 0.4 mg SUBLINGUAL Q5M PRN tab PRN Reason: Chest Pain Continue Aspirin [Adult Low Dose Aspirin EC] 81 mg PO DAILY Metoprolol Succinate (ER) [Toprol XL] 25 mg PO DAILY Clopidogrel [Plavix] 75 mg PO DAILY #30 tab Atorvastatin [Lipitor] 40 mg PO DAILY Cephalexin [Keflex] 500 mg PO Q6HR 10 Days #40 cap HYDROcodone/APAP 10-325MG [[place] 10-325] 1 tab PO Q6HR PRN 3 Days #12 tab PRN Reason: Pain predniSONE See Taper PO DAILY lisinopriL [Zestril] 2.5 mg PO DAILY hydrOXYzine HCL [Atarax] 25 mg PO QID tab Discharge Medication List Aspirin [Adult Low Dose Aspirin EC] 81 mg PO DAILY 08/05/20 [History] Metoprolol Succinate (ER) [Toprol XL] 25 mg PO DAILY 09/14/20 [History] Clopidogrel [Plavix] 75 mg PO DAILY #30 tab 09/22/20 [Rx] Atorvastatin [Lipitor] 40 mg PO DAILY 01/07/23 [History] lisinopriL [Zestril] 2.5 mg PO DAILY 01/07/23 [History] Cephalexin [Keflex] 500 mg PO Q6HR 10 Days #40 cap 01/09/23 [Rx] HYDROcodone/APAP 10-325MG [[place] 10-325] 1 tab PO Q6HR PRN 3 Days #12 tab 01/09/23 [Rx] hydrOXYzine HCL [Atarax] 25 mg PO QID tab 01/09/23 [Rx] predniSONE See Taper PO DAILY 01/10/23 [History] Nitroglycerin Sl Tabs [Nitrostat] 0.4 mg SUBLINGUAL Q5M PRN tab 01/11/23 [Rx] Pantoprazole [Protonix] 40 mg PO AC-BID tab 01/11/23 [Rx] Follow up Appointment(s)/Referral(s): Lesley Balbuena MD [Primary Care Provider] - 1-2 days
[2023-01-11 17:16] LABS: Chol/HDL Ratio 2.09 Ratio; LDL Cholesterol,Calculated 55.5 mg/dL (0.0-131.0)
== END 2023-01-11 17:29 | disposition home or self-care (01) ==
LOC: EC 07:24 → 3SCARD 10:30
PROVIDERS: ADMIT Internal Medicine; ATTEND Internal Medicine
DX: R07.9 Chest pain, unspecified (principal); R20.2 Paresthesia of skin; R20.0 Anesthesia of skin; R79.1 Abnormal coagulation profile; L03.114 Cellulitis of left upper limb; L03.113 Cellulitis of right upper limb; L40.9 Psoriasis, unspecified; I10 Essential (primary) hypertension; E78.5 Hyperlipidemia, unspecified; I73.9 Peripheral vascular disease, unspecified; Z95.820 Peripheral vascular angioplasty status with implants and grafts; I44.7 Left bundle-branch block, unspecified; F17.210 Nicotine dependence, cigarettes, uncomplicated; E27.9 Disorder of adrenal gland, unspecified; D72.829 Elevated white blood cell count, unspecified; Z98.890 Other specified postprocedural states; J44.9 Chronic obstructive pulmonary disease, unspecified; M19.90 Unspecified osteoarthritis, unspecified site; Z79.82 Long term (current) use of aspirin; Z79.899 Other long term (current) drug therapy; Z79.02 Long term (current) use of antithrombotics/antiplatelets
CPT/HCPCS: 96372 ×2; 96375 ×2; 96376; 96361; 96365; 96366; 99285; 36415; 94760; 93005; 93306; 85379; 83880; 80061; 80053; 83735; 84484; 85025; 85610; 85730; 87636; 71046; 76705; 71275; G0378 ×2; J1940; J2405; J2270; J1644 ×4; J7512 ×2; Q9967

== ENCOUNTER → 2023-09-01 | Outpatient (CLI) | payer MEDICARE, OTHER ==
[2023-09-01 11:46] LABS: INR 0.9 (<1.2); Prothrombin Time 10.3 sec (10.0-12.5)
[2023-09-01 12:49] LABS: Partial Thromboplastin Time 21.8 sec (22.0-30.0)
[2023-09-01 15:59] LABS: Appearance,Urine Clear (Clear); Bilirubin,Urine Negative (Negative); Blood,Urine Negative (Negative); Color,Urine Yellow (Yellow); Ketones,Urine Negative (Negative); Nitrite,Urine Negative (Negative); PH, Urine 6.5; Specific Gravity,Urine 1.005 (1.001-1.030); Urobilinogen,Urine 0.2 E.U./DL
[2023-09-01 16:09] LABS: ALT 22 U/L (8-44); AST 22 U/L (13-35); Albumin 4.4 d/dL (3.8-4.9); Albumin/Globulin Ratio 1.83 Ratio (1.60-3.17); Alkaline Phosphatase 119 U/L (41-126); BUN/Creat Ratio 14.67 Ratio (12.00-20.00); Blood Urea Nitrogen 13.2 mg/dL (9.0-27.0); Calcium 10.2 mg/dL (8.7-10.3); Carbon Dioxide 24.3 mmol/L (21.6-31.8); Chloride 100 mmol/L (96-109); Globulin 2.4 d/dL (1.6-3.3); Glucose 117 mg/dL (70-110); Potassium 5.2 mmol/L (3.5-5.5); Sodium 137 mmol/L (135-145); Total Bilirubin 0.3 mg/dL (0.3-1.2); Total Protein 6.8 d/dL (6.2-8.2)
[2023-09-01 16:41] LABS: HCT 42.7 % (37.2-46.3); HGB 13.7 d/dL (12.0-15.0); MCH 28.8 pg (27.0-32.0); MCHC 32.1 d/dL (32.0-37.0); MCV 89.9 FL (80.0-97.0); Mean Platelet Volume 9.7 FL (9.5-12.2); NRBC Per 100 WBC 0 X 10*3/uL (0.00-0.01); Platelet Count 313 X 10*3/uL (140-440); RBC 4.75 X 10*6/uL (4.10-5.20); RDW 13.6 % (11.5-14.5); WBC 11.38 X 10*3/uL (4.50-10.00)
== END | disposition home or self-care (01) ==
LOC: LABPAT 09:42
PROVIDERS: ATTEND Orthopaedic Surgery
DX: Z01.812 Encounter for preprocedural laboratory examination (principal); M16.12 Unilateral primary osteoarthritis, left hip
CPT/HCPCS: 80053; 81003; 85027; 85610; 85730; 86850; 86900; 86901; 87070

== ENCOUNTER 2023-09-13 13:55 | Inpatient (IN) | payer MEDICARE, OTHER ==
[2023-09-08 10:27] VITALS: BMI 27.2
[~2023-09-13 13:55] MED LIST changes: +ACETAMINOPHEN TAB 500 MG TAB PO PRN; -ALPRAZolam 0.25 MG TAB PO PRN; -ALPRAZolam 0.5 MG TAB PO PRN; -ASPIRIN 325 MG TAB PO STA; -ATORVASTATIN 80 MG TAB PO STA; +DEXAMETHASONE SOD PHOSPHATE 10 MG/ML 1 ML VIAL IV PRN; +DEXAMETHASONE SOD PHOSPHATE 4 MG/ML 1 ML VIAL IV ONE; +DOCUSATE 100 MG CAP PO PRN; +FAMOTIDINE 20 MG/2 ML VIAL IVP PRN; +HYDROmorphone 0.5 MG/0.5 ML SYRINGE IVP PRN; +KETOROLAC 15 MG/ML 1 ML VIAL IVP PRN; -NITROGLYCERIN SL TABS 0.4 MG TAB SUBLINGUAL PRN; +ONDANSETRON 4 MG/2 ML VIAL IVP PRN; -SODIUM CHLORIDE 0.9% 1,000 ML in EMPTY BAG 1 BAG IV ONE; +TRANEXAMIC 1,000 MG/100ML-NACL 1,000 MG in SALINE 1 100ML.BAG IV PRN; +TRANEXAMIC 1,000 MG/100ML-NACL 1,000 MG in SALINE 1 100ML.BAG IVPB PRN; +oxyCODONE ER 10 MG TAB.ER.12H PO PRN
[2023-09-13] MEDS: LACTATED RINGERS 1,000 ML IV SCH (14:55)
[2023-09-13] MEDS ORDERED: MIDAZOLAM 2 MG/2 ML VIAL IVP ONE (15:05)
[2023-09-13] MEDS ORDERED: fentaNYL (PF) 50 MCG/1 ML VIAL IVP ONE (15:06)
[2023-09-13] MEDS: ROPIVACAINE/EPI/CLONIDINE/KET 50 ML SYRINGE MISCELLANE PRN ×2 (16:19→17:25)
[2023-09-13] MEDS ORDERED: LACTATED RINGERS 1,000 ML IV ONE ×2 (16:54→19:26)
--- NOTE | 2023-09-13 17:49 | P.ANPRN ---
Procedure Note - Anesthesia - Nerve Block Performed Left Oneal Single Time Out Performed: Yes Date of Procedure: 09/13/23 Procedure Start Time: 15:05 Procedure Stop Time: 15:13 Location of Patient: PreOp Indication: Acute Post-Operative Pain, Requested by Surgeon Sedation Type: Sedate with meaningful contact maintained Preparation: Sterile Prep Position: Supine Needle Types: Pajunk Needle Gauge: 21 Ultrasound used to visualize needle placement: Yes Ultrasound used to observe medication spread: Yes Injectate: 0.5% Ropivacaine (see comment for volume) (15 ml + 15 ml NS + 4 mg dexamethasone) Blood Aspirated: No Pain Paresthesia on Injection Noted: No Resistance on Injection: Normal Image Stored and Saved: Yes Events: Uneventful and Well Tolerated
[2023-09-13] MEDS ORDERED: NALOXONE 0.4 MG/ML 1 ML VIAL IV PRN (18:16)
[2023-09-13] MEDS ORDERED: MAGNESIUM HYDROXIDE 2,400 MG/30 ML CUP PO PRN (18:16)
[2023-09-13] MEDS ORDERED: hydrOXYzine pamoate 25 MG CAP PO PRN (18:16)
--- NOTE | 2023-09-13 18:16 | P.OP ---
Date of Procedure: 09/13/23 Preoperative Diagnosis: 1. Severe left hip osteoarthritis 2. Rheumatoid arthritis 3. History of cigarette smoking 4. COPD Postoperative Diagnosis: Same Procedure(s) Performed: 1. Left direct anterior total hip arthroplasty 2. Application of negative pressure incisional wound VAC, left hip less than 50 cm, incision measuring 15 cm Implants: 1. Osiris Trident II Acetabular Cup, Size #48 2. [place] Insignia Size #4 Femoral Stem, Standard Offset 3. Biolox delta femoral head, 36 mm, - 5 mm neck Anesthesia: GETA Surgeon: Alvaro Luevano Estimated Blood Loss (ml): 200 IV fluids (ml): 800 Pathology: none sent Condition: stable Disposition: PACU Indications for Procedure: I had a long discussion with the patient in the office on the potential risks and complications of an elective total hip replacement through a direct anterior approach. Risks discussed include, but are certainly not limited to, risks from anesthesia, superficial infection requiring local wound care or antibiotics, deep lucille-prosthetic joint infection and the treatment required to eradicate infection, intraoperative fracture, postoperative periprosthetic fracture, damage to local blood vessels or nerves particularly the lateral femoral cut aneous nerve, delayed wound healing requiring local wound care or possibly surgical debridement, hip dislocation, leg length discrepancy, soft tissue irritation around the total hip implant such as iliopsoas tendinitis or trochanteric bursitis, wear and osteolysis from the implants, squeaking or audible noises, groin pain, thigh pain, heterotopic ossification, stiffness, aseptic loosening of the implants, dissatisfaction with surgical outcome, need for revision surgery, DVT, PE, swelling of the operative extremity, acute coronary event, stroke, failure to thrive, and possibly loss of life or limb. The patient understands that while these are the most common complications after an elective hip replacement there are certainly other less common complications possible. They were given ample time to ask questions regarding the potential complications of a hip replacement. Following our discussion the patient provided their verbal and written consent to go forward with an elective total h ip replacement. We also discussed the patient's elevated risk for surgical complication given her medical history of cigarette smoking and rheumatoid arthritis. The patient has severe bilateral hip arthritis and is incredibly incapacitated due to the severity of her pain. I strongly encouraged her to smoking prior to surgery. She was able to decrease her smoking down to 1-2 cigarettes per day but was unable to completely quit. She states she understands her increased risk of delayed wound healing and infection but wishes to proceed with surgery. I was very up front with her about her elevated risk. We discussed additional measures that we would take to help lower her risk but she still remains at a higher risk. She was strongly encouraged to quit in the perioperative period. Operative Findings: Severe left hip osteoarthritis Description of Procedure: The patient was identified in the preoperative holding area and the correct hip was marked with my initials. I reviewed the procedure and consent with the patient. All of their questions were answered. The patient was then brought back into the operating room by anesthesia. While on the [facility] anesthesia was administered by the anesthesia team. Preoperative antibiotics and tranexamic acid were also given. After the patient was under anesthesia I examined their ankles to determine their preoperative leg length discrepancy. The skin over the anterior aspect of the hip was shaved to remove hair over the site of planned incision. Both feet and ankles were padded with webril and boots for the [place] were applied. The patient was then carefully transferred onto the [place] table. A perineal post was immediately placed. The arms were placed on arm holders and were well-padded. Both boots were secured to the spars on the [place] table. The patient was positioned so that the pelvis was centered over the post. Nonsterile drapes were applied. A timeout was performed identifying the correct patient, operative extremity, and procedure. At this point fluoroscopy was brought in to take preoperative images of the pelvis and operative hip. Using the standing AP pelvis from the office as a template, a comparable image was obtained with fluoroscopy. A metallic bar was used to create a bi-ischial line for use as a reference to leg length adjustments during the procedure. Global offset was also measured on both the operative and nonoperative leg. Fluoroscopy was then brought out and a pre-scrub using a chlorhexidine scrub brush was performed. The operative limb was then prepped and draped in the standard sterile fashion. An anterior longitudinal incision was made lateral and distal to the ASIS. The skin and subcutaneous tissues were incised sharply. The underlying tensor fascia was identified and incised in its midportion. The fascia was dissected free from the underlying muscle and the muscle belly was retracted. A blunt tipped cobra retractor was placed over the superior neck under the muscle fibers of the gluteus minimus. The deep enveloping fascia of the tensor was incised. The anterior leash of vessels were then identified and cauterized. The fascia between the rectus and the capsule was then incised and the pre-capsular fat was excised. A second Cobra was placed inferior to the neck. The interval between the rectus and iliocapsularis and the hip capsule was developed and a retractor was placed carefully over the anterior rim of the acetabulum. A T-shaped anterior capsulotomy was performed. The superior capsular leaflet was left in place in the inferior capsular flap was excised. The Cobra retractors were placed intracapsularly. We then made a femoral neck osteotomy according to preoperative and intraoperative templating and confirmed the level of the osteotomy using fluoroscopic imaging. The femoral head was removed, passed off to the back table, and sized. The superior capsular flap was excised. Retractors were placed circumferentially exposing the acetabulum. We then circumferentially debrided the acetabulum free of labrum and osteophytes. The pulvinar was removed to fully visualize the cotyloid fossa. We then sequentially reamed to achieve peripheral fit and excellent bleeding subchondral bone. The socket was thoroughly irrigated. The acetabular component was impacted into the appropriate position using fluoroscopy to guide version, inclination, and depth of insertion taking care to have a comparable image of the AP pelvis to the standing image taken in the office. An excellent press-fit was achieved and final position was confirmed using fluoroscopy. The press fit was augmented with bony cancellus dome screws. The liner was then impacted into the socket. Attention was then turned to the femur. The remnant dorsal lateral capsule was excised. The short external rotators were visible and protected. A bone hook was used to confirm appropriate translation of the trochanter away from the acetabulum. The leg was then extended and adducted and the bone hook was used to elevate the femur for broaching. A box osteotome and blunt tipped canal sound was then utilized to gain access to the femoral canal. We then sequentially broached the femur in appropriate anteversion until excellent torsional stability was achieved. The neck cut was brought flush to the trial broach with a calcar planar. A trial neck and head were then placed onto the broach and the hip was atraumatically reduced under direct visualization. External rotation to 90 was performed to assess stability. Fluoroscopy was brought in. An AP and lateral fluoroscopic image of the proximal femur was obtained to assess position and fill of the trial broach. An AP of the pelvis was then obtained and matched to the preoperative image taken. A bi-ischial bar was then placed and measurements were taken to assess changes in length and offset. The hip was then carefully dislocated, the proximal femur was exposed, and the trial implants were removed. The wound and proximal femur was thoroughly irrigated using sterile saline and pulsatile lavage. The final femoral implant was dispensed and gently tapped into place generating an excellent press-fit. The trunnion was cleansed and the final head was tapped into place to engage the [place] taper. The acetabulum was irrigated and visualized to be free of debris. The hip was carefully reduced. Stability was checked clinically with external rotation to 90 and there was no evidence of instability. Final fluoroscopic images were taken. The wound was then thoroughly irrigated and soaked with a dilute Betadine rinse for 3 minutes. 3 L of sterile saline was irrigated through the wound using pulsatile lavage. Local anesthetic cocktail was injected into the soft tissues around the surgical field. A deep drain was placed. The wound was then closed in layers. A sterile dressing was placed over the surgical incision and drain site - due to the patient's elevated risk factors including smoking and rheumatoid arthritis I elected to place an incisional wound VAC. Her incision measured 15 cm and a 20 cm incisional wound VAC was applied over her closed incision, hooked up to the canister and suction was applied with good seal. The drapes were taken down and the patient was carefully transferred off of the [place] table. Following removal of the boots the leg lengths felt acceptable. The patient was then taken to recovery room having tolerated the procedure well. . PLAN: The patient can weight-bear as tolerated on the operative extremity. 2 doses of postoperative antibiotics while in the hospital and will discharge her home on doxycycline 100 mg twice a day for 2 weeks given her increased risk of wound healing problems. DVT prophylaxis with aspirin 81 mg twice a day based on preoperative risk stratification. Physical therapy for gait training. Discontinue drain postoperative day #1 if output is less than 100 mL per shift. Leave incisional wound VAC in place.
[2023-09-13] MEDS ORDERED: HYDROmorphone 0.5 MG/0.5 ML SYRINGE IVP ONE (18:18)
[2023-09-13] MEDS ORDERED: MEPERIDINE 50 MG/ML SYRINGE IVP ONE ×2 (18:22→18:33)
--- NOTE | 2023-09-13 19:08 | XR ---
Intraoperative/procedural fluoroscopic services were provided. Total fluoroscopy time is 50 seconds w ith a total of 7 submitted images to PACS. Please see the operative/procedural note for further yakelin looney. DAP: 1.8021 Gycm2
[2023-09-13] MEDS ORDERED: ONDANSETRON 4 MG/2 ML VIAL IVP PRN (21:05)
[2023-09-13] MEDS: SODIUM CHLORIDE 0.9% 1,000 ML IV SCH (21:40)
[2023-09-13] MEDS: SENNOSIDES-DOCUSATE SODIUM 1 EACH TAB PO SCH (21:55)
[2023-09-13] MEDS: ASPIRIN 81 MG PO SCH (21:56)
[2023-09-14] MEDS: HYDROmorphone 0.5 MG/0.5 ML SYRINGE IVP PRN ×2 (01:54→06:24)
[2023-09-14] MEDS: SODIUM CHLORIDE 0.9% 1,000 ML IV SCH ×2 (06:20→22:13)
[2023-09-14] MEDS: LACTATED RINGERS 1,000 ML IV SCH (06:21)
--- NOTE | 2023-09-14 07:57 | P.PN ---
Subjective Progress Note Date: 09/14/23 The patient was seen this morning at bedside. She is complaining of left-sided low back pain. The pain in her hip is relatively well controlled. She denies chest pain or shortness of breath. Objective - Vital Signs Vital signs: Vital Signs Temp 98.6 F 09/14/23 07:02 Pulse 89 09/14/23 07:02 Resp 17 09/14/23 07:02 BP 113/55 09/14/23 07:02 Pulse Ox 95 09/14/23 07:02 FiO2 Intake & Output 09/13/23 09/14/23 09/14/23 18:59 06:59 18:59 Intake Total 1750 Output Total 300 100 Balance 1450 -100 Weight 66.7 kg 66.7 kg Intake: IV 1750 Output: Drainage 100 Left Anterior Hip 100 Estimated Blood Loss 300 Other: # Voids 1 - Exam The patient is examined at bedside. She is in mild to moderate distress secondary to pain. On inspection of the left leg there is a clean dressing, Prevena wound VAC over the hip. It has a good seal. Her Hemovac drain was removed. Her thigh and calf are soft. Femoral nerve function is intact. She is able to actively plantarflex and dorsiflex her ankle and her toes. Assessment and Plan Assessment: Postoperative day #1 status post left correct anterior total hip replacement History of cigarette smoking Rheumatoid arthritis COPD Coronary artery disease with heart stents Plan: 1. Weightbearing as tolerated left lower extremity, with assistance and a walker 2. 2 doses postoperative antibiotics and then will transition to oral doxycycline for 2-6 weeks given her high risk 3. DVT prophylaxis - aspirin 81 mg twice a day 1 week then can resume Plavix and aspirin daily 4. Appreciate internal medicine's assistance in perioperative medical management 5. Physical therapy 6. Dispo: We'll plan on keeping the patient another night given her medical history and low back pain. If she does well today and would like to discharge home later this afternoon that is okay as well.
[2023-09-14] MEDS: ASPIRIN 81 MG PO SCH ×2 (08:17→22:06)
[2023-09-14 08:20] LABS: Basophils # (A) 0.02 X 10*3/uL (0.00-0.10); Basophils % (A) 0.1 %; Eosinophils # (A) 0 X 10*3/uL (0.04-0.35); Eosinophils % (A) 0 %; HCT 30.6 % (37.2-46.3); HGB 10.1 g/dL (12.0-15.0); Lymphocytes % (A) 5.2 %; MCH 28.9 pg (27.0-32.0); MCV 87.4 FL (80.0-97.0); Mean Platelet Volume 9.9 FL (9.5-12.2); Monocytes # (A) 0.97 X 10*3/uL (0.20-1.00); Monocytes % (A) 6.3 %; NRBC Per 100 WBC 0 X 10*3/uL (0.00-0.01); Neutrophils % (A) 87.7 %; Platelet Count 227 X 10*3/uL (140-440); RDW 14.1 % (11.5-14.5); WBC 15.29 X 10*3/uL (4.50-10.00)
[2023-09-14] MEDS: diazePAM 5 MG TAB PO PRN (08:23)
[2023-09-14] MEDS: HYDROcodone/APAP 10-325MG 1 EACH TAB PO PRN ×3 (08:23→22:05)
[2023-09-14] MEDS ORDERED: NITROGLYCERIN SL TABS 0.4 MG TAB SUBLINGUAL PRN (17:22)
[2023-09-14] MEDS: SENNOSIDES-DOCUSATE SODIUM 1 EACH TAB PO SCH (22:06)
[2023-09-14] MEDS: ACETAMINOPHEN TAB 500 MG TAB PO SCH (22:46)
[2023-09-15] MEDS: diazePAM 5 MG TAB PO PRN (00:33)
[2023-09-15] MEDS: SODIUM CHLORIDE 0.9% 1,000 ML IV SCH ×3 (00:52→22:35)
[2023-09-15] MEDS: HYDROcodone/APAP 5-325MG 1 EACH TAB PO PRN (04:05)
[2023-09-15] MEDS: LACTATED RINGERS 1,000 ML IV SCH (06:43)
[2023-09-15] MEDS ORDERED: NON FORMULARY DRUG (Aspirin [Adult Low Dose Aspirin Ec] 81 MG Tablet.Dr) PO SCH (09:00)
[2023-09-15] MEDS ORDERED: NON FORMULARY DRUG (Garlic [Garlic] 1,000 MG Capsule) PO SCH (09:00)
--- NOTE | 2023-09-15 10:11 | P.CONS ---
History of Present Illness - Reason for Consult Consult date: 09/14/23 - History of Present Illness Alysha Mayorga, is a 60-year-old female patient of Dr. Balbuena who presented for an elective right hip arthroplasty with Dr. Luevano on 09/13/2023. Patient's past medical history of COPD, hyperlipidemia, hypertension, osteoarthritis and current every day smoker. At this time patient is resting comfortably in bed patient complaining of neck pain denies chest pain or shortness breath. Patient denies nausea vomiting or diarrhea. Patient denies any urinary burning or frequency. PT OT services are following. Patient maintained on aspirin 81 mg twice a day for DVT prophylaxis Review of Systems Please refer to HPI otherwise unremarkable Past Medical History Past Medical History: COPD, Hyperlipidemia, Hypertension, Osteoarthritis (OA), Skin Disorder Additional Past Medical History / Comment(s): Psoriasis. Irregular heartbeat. "Feet are always cold". History of Any Multi-Drug Resistant Organisms: None Reported Past Surgical History: Heart Catheterization, Orthopedic Surgery, Tonsillectomy Additional Past Surgical History / Comment(s): Neck surgery C5/6/7 plate placement. Carotid stent X2(09/21/2020). Past Anesthesia/Blood Transfusion Reactions: No Reported Reaction Past Psychological History: No Psychological Hx Reported Smoking Status: Current every day smoker Past Alcohol Use History: None Reported Additional Past Alcohol Use History / Comment(s): Smoker - 1 PPD since her early 20's, currently dowon to 4-5 cigarettes per day. Past Drug Use History: None Reported - Past Family History Mother Family Medical History: No Reported History Brother(s) Family Medical History: Cancer Medications and Allergies Home Medications Medication Instructions Recorded Confirmed Type Aspirin [Adult Low Dose Aspirin EC] 81 mg PO DAILY 08/05/20 09/08/23 History Metoprolol Succinate (ER) [Toprol 25 mg PO QAM 09/14/20 09/08/23 History XL] Clopidogrel [Plavix] 75 mg PO DAILY #30 tab 09/22/20 09/08/23 Rx Atorvastatin [Lipitor] 40 mg PO DAILY 01/07/23 09/08/23 History lisinopriL [Zestril] 2.5 mg PO QAM 01/07/23 09/08/23 History Nitroglycerin Sl Tabs [Nitrostat] 0.4 mg SUBLINGUAL Q5M PRN tab 01/11/23 09/08/23 Rx Acetaminophen [Tylenol Extra 500 mg PO DAILY 09/08/23 09/08/23 History Strength] Ascorbic Acid [Vitamin C] 1,000 mg PO DAILY 09/08/23 09/08/23 History Cholecalciferol [Vitamin D3 (125 125 mcg PO DAILY 09/08/23 09/08/23 History Mcg = 5000 Iu)] Folic Acid 1 mg PO DAILY 09/08/23 09/08/23 History Garlic 1,000 mg PO DAILY 09/08/23 09/08/23 History Zinc Gluconate [Zinc] 50 mg PO DAILY 09/08/23 09/08/23 History inFLIXimab [Remicade] 100 mg IVPB DIRECTED 09/08/23 09/08/23 History metHOTREXate sodium 12.5 mg PO WEEKLY 09/08/23 09/14/23 History Aspirin 81 mg PO DAILY 7 Days #14 tab 09/14/23 Rx Docusate [Colace] 100 mg PO BID 30 Days #60 capsule 09/14/23 Rx HYDROcodone/APAP 5-325MG [[place] 1 - 2 tab PO Q6HR PRN #32 tab 09/14/23 Rx 5-325] Omeprazole [PriLOSEC] 40 mg PO DAILY 30 Days #30 cap 09/14/23 Rx Doxycycline Monohydrate 100 mg PO BID 14 Days #28 cap 09/15/23 Rx Allergies Allergy/AdvReac Type Severity Reaction Status Date / Time No Known Allergies Allergy Verified 09/13/23 14:36 Physical Exam Vitals: Vital Signs Temp Pulse Resp BP Pulse Ox 09/14/23 13:43 98.1 F 91 20 120/56 97 09/14/23 08:24 89 17 09/14/23 07:02 98.6 F 89 17 113/55 95 09/14/23 00:55 98.3 F 84 19 113/61 90 L 09/13/23 21:49 73 126/80 99 09/13/23 21:34 69 117/71 98 09/13/23 21:19 71 112/69 96 09/13/23 21:04 67 110/69 99 09/13/23 20:49 67 106/70 98 09/13/23 20:34 85 119/74 95 09/13/23 20:19 84 117/73 97 09/13/23 20:06 75 130/60 90 L 09/13/23 19:49 97.6 F 99 20 138/64 99 09/13/23 19:30 93 20 100/49 100 09/13/23 19:15 83 20 107/49 100 09/13/23 19:00 97 20 114/52 100 09/13/23 18:45 87 18 113/53 99 09/13/23 18:30 87 18 166/76 98 09/13/23 18:15 106 H 22 166/76 100 09/13/23 18:00 97.2 F L 101 H 14 156/75 99 Intake and Output 09/14/23 09/14/23 09/14/23 06:59 14:59 22:59 Output Total 100 Balance -100 Output: Drainage 100 Left Anterior Hip 100 Other: Voiding Method Toilet # Voids 1 Head normocephalic Neck supple Lungs clear to auscultation bilaterally no wheezing or crackles Heart regular rate and rhythm S1-S2, no rub or gallop Abdomen is soft nontender nondistended positive bowel sounds no hepatosplenomegaly Extremities no edema. Left hip dressing clean dry and intact Neuro alert and orientated to 3 Results CBC & Chem 7: 09/14/23 05:55 Labs: Abnormal Lab Results - Last 24 Hours (Table) 09/14/23 Range/Units 05:55 WBC 15.29 H (4.50-10.00) X 10*3/uL RBC 3.50 L (4.10-5.20) X 10*6/uL Hgb 10.1 L (12.0-15.0) g/dL Hct 30.6 L (37.2-46.3) % Neutrophils # 13.40 H (1.80-7.70) X 10*3/uL Lymphocytes # 0.80 L (0.90-5.00) X 10*3/uL Eosinophils # 0 L (0.04-0.35) X 10*3/uL Assessment and Plan Assessment: 1. Left hip arthroplasty with Dr. Luevano on 09/13/2023 2. History of COPD 3. History of rheumatoid arthritis 4. History of coronary artery disease with heart stents 5. Ongoing nicotine dependence DVT prophylaxis aspirin CBC and CMP ordered Thank you for this consultation we'll continue to follow patient closely throughout stay Time with Patient: Greater than 30 (Greater than 60% of the total time spent in counseling and coordination of care)
--- NOTE | 2023-09-15 10:13 | P.PN ---
Subjective Progress Note Date: 09/15/23 Alysha Mayorga is a 60-year-old female patient of Dr. Balbuena who presented for an elective right hip arthroplasty with Dr. Luevano on 09/13/2023. Patient's past medical history of COPD, hyperlipidemia, hypertension, osteoarthritis and current every day smoker. At this time patient is resting comfortably in bed patient complaining of neck pain denies chest pain or shortness breath. Patient denies nausea vomiting or diarrhea. Patient denies any urinary burning or frequency. PT OT services are following. Patient maintained on aspirin 81 mg twice a day for DVT prophylaxis On 09/15/2023 patient is alert and oriented 3. Patient reports pain is mostly in her back which is a chronic issue for her. Patient denies chest pain or shortness of breath. Patient denies nausea vomiting or diarrhea. Patient denies any urinary burning or frequency. Lab work currently pending. Vital signs temp 98.2, heart rate 91, respiratory rate 18, blood pressure 135/66 with pulse ox 98% on room air Objective - Vital Signs Vital signs: Vital Signs Temp 98.1 F 09/15/23 07:15 Pulse 104 H 09/15/23 07:15 Resp 18 09/15/23 07:15 BP 159/52 09/15/23 07:15 Pulse Ox 96 09/15/23 07:15 FiO2 Intake & Output 09/14/23 09/15/23 09/15/23 18:59 06:59 18:59 Other: Voiding Method Toilet # Voids 2 2 - Exam Head normocephalic Neck supple Lungs clear to auscultation bilaterally no wheezing or crackles Heart regular rate and rhythm S1-S2, no rub or gallop Abdomen is soft nontender nondistended positive bowel sounds no hepatosplenomegaly Extremities no edema. Left hip dressing clean dry and intact Neuro alert and orientated to 3 - Labs CBC & Chem 7: 09/14/23 05:55 Assessment and Plan Assessment: 1. Left hip arthroplasty with Dr. Luevano on 09/13/2023 2. History of COPD 3. History of rheumatoid arthritis 4. History of coronary artery disease with heart stents 5. Ongoing nicotine dependence DVT prophylaxis aspirin CBC and CMP ordered Thank you for this consultation we'll continue to follow patient closely throughout stay
--- NOTE | 2023-09-15 10:45 | P.PN ---
Subjective The patient was seen and evaluated this morning. She is continuing to complain of low back pain. She has some discomfort in her hip but her main complaint is the back. She describes it as burning sciatic pain. She denies chest pain or shortness of breath. Objective - Vital Signs Vital signs: Vital Signs Temp 98.1 F 09/15/23 07:15 Pulse 104 H 09/15/23 07:15 Resp 18 09/15/23 07:15 BP 159/52 09/15/23 07:15 Pulse Ox 96 09/15/23 07:15 FiO2 Intake & Output 09/14/23 09/15/23 09/15/23 18:59 06:59 18:59 Other: Voiding Method Toilet # Voids 2 2 - Exam The patient is resting in her bed. She is in mild distress secondary to pain. On inspection of the left hip there is an intact incisional wound VAC with good seal. Her thigh and calf are soft. Femoral nerve function is intact. She is a ble to actively plantarflex and dorsiflex her ankle and her toes. - Labs CBC & Chem 7: 09/14/23 05:55 Assessment and Plan Assessment: Postoperative day #2 status post left direct anterior total hip arthroplasty Rheumatoid arthritis History of smoking and COPD Plan: Continue treatment as outlined yesterday. The patient has struggled to ambulate with physical therapy has continued to have low back pain. We will plan on continued therapy and pain control. If she continues to have low back pain I will consult my spine partner for evaluation. The patient may ultimately need discharge to rehab.
[2023-09-15] MEDS: HYDROcodone/APAP 10-325MG 1 EACH TAB PO PRN ×2 (10:52→20:32)
[2023-09-15] MEDS: ASPIRIN 81 MG PO SCH ×2 (10:53→20:32)
[2023-09-15] MEDS: ACETAMINOPHEN TAB 500 MG TAB PO SCH (10:53)
[2023-09-15] MEDS: METOPROLOL SUCCINATE (ER) 25 MG TAB.ER.24H PO SCH (10:53)
[2023-09-15] MEDS: CLOPIDOGREL 75 MG TAB PO SCH (10:54)
[2023-09-15] MEDS: ATORVASTATIN 40 MG TAB PO SCH (10:54)
[2023-09-15] MEDS: CHOLECALCIFEROL 125 MCG (5000 IU) TABLET PO SCH (10:54)
[2023-09-15] MEDS: FOLIC ACID 1 MG TAB PO SCH (10:54)
[2023-09-15] MEDS: ASCORBIC ACID 500 MG TAB PO SCH (10:54)
[2023-09-15] MEDS: ZINC SULFATE 220 MG CAP PO SCH (10:54)
[2023-09-15 10:58] LABS: Basophils # (A) 0.05 X 10*3/uL (0.00-0.10); Basophils % (A) 0.5 %; Eosinophils # (A) 0.16 X 10*3/uL (0.04-0.35); Eosinophils % (A) 1.5 %; HCT 28.6 % (37.2-46.3); HGB 9.2 g/dL (12.0-15.0); Lymphocytes # (A) 1.24 X 10*3/uL (0.90-5.00); Lymphocytes % (A) 11.6 %; MCH 28.8 pg (27.0-32.0); MCHC 32.2 g/dL (32.0-37.0); MCV 89.4 FL (80.0-97.0); Mean Platelet Volume 9.8 FL (9.5-12.2); Monocytes # (A) 0.91 X 10*3/uL (0.20-1.00); Monocytes % (A) 8.5 %; NRBC Per 100 WBC 0 X 10*3/uL (0.00-0.01); Neutrophils # (A) 8.28 X 10*3/uL (1.80-7.70); Neutrophils % (A) 77.6 %; Platelet Count 182 X 10*3/uL (140-440); RDW 14.6 % (11.5-14.5); WBC 10.67 X 10*3/uL (4.50-10.00)
[2023-09-15 11:11] LABS: ALT 15 U/L (8-44); AST 25 U/L (13-35); Albumin 3.4 g/dL (3.8-4.9); Albumin/Globulin Ratio 1.89 Ratio (1.60-3.17); Alkaline Phosphatase 71 U/L (41-126); BUN/Creat Ratio 16.11 Ratio (12.00-20.00); Blood Urea Nitrogen 14.5 mg/dL (9.0-27.0); Calcium 8.8 mg/dL (8.7-10.3); Carbon Dioxide 24.1 mmol/L (21.6-31.8); Chloride 103 mmol/L (96-109); Globulin 1.8 g/dL (1.6-3.3); Glucose 133 mg/dL (70-110); Potassium 4.2 mmol/L (3.5-5.5); Sodium 137 mmol/L (135-145); Total Bilirubin <0.2 mg/dL (0.3-1.2); Total Protein 5.2 g/dL (6.2-8.2)
[2023-09-15] MEDS: SENNOSIDES-DOCUSATE SODIUM 1 EACH TAB PO SCH (20:32)
[2023-09-16] MEDS: HYDROcodone/APAP 10-325MG 1 EACH TAB PO PRN (06:19)
[2023-09-16] MEDS: SODIUM CHLORIDE 0.9% 1,000 ML IV SCH ×2 (06:20→18:39)
[2023-09-16] MEDS: LACTATED RINGERS 1,000 ML IV SCH (06:21)
--- NOTE | 2023-09-16 08:24 | P.PN ---
Subjective Progress Note Date: 09/16/23 Patient's low back pain is improved, but she is still complaining of posterior buttock pain on the left. He states that this has been an issue for her in the past. Her hip pain is improved. She denies chest pain or shortness of breath. She has no other complaints this morning. Objective - Vital Signs Vital signs: Vital Signs Temp 98.3 F 09/16/23 01:17 Pulse 92 09/16/23 01:17 Resp 16 09/16/23 01:17 BP 122/67 09/16/23 01:17 Pulse Ox 98 09/16/23 01:17 FiO2 Intake & Output 09/15/23 09/16/23 09/16/23 18:59 06:59 18:59 Other: Voiding Method Toilet # Voids 4 5 - Exam The patient is resting comfortably in her bed. She is in no apparent distress and is able to answer questions. On inspection of the left leg there is an intact incisional wound VAC with good seal. The dressing over her drain is also intact with no drainage restrictor. Her thigh and calf are soft. She has minimal pain with passive range of motion of the left hip. Femoral nerve function is intact. She is able to actively plantarflex and dorsiflex her ankle and toes. - Labs CBC & Chem 7: 09/15/23 07:23 09/15/23 07:23 Labs: Abnormal Lab Results - Last 24 Hours (Table) 09/15/23 09/15/23 Range/Units 07:23 07:23 WBC 10.67 H (4.50-10.00) X 10*3/uL RBC 3.20 L (4.10-5.20) X 10*6/uL Hgb 9.2 L (12.0-15.0) g/dL Hct 28.6 L (37.2-46.3) % RDW 14.6 H (11.5-14.5) % Neutrophils # 8.28 H (1.80-7.70) X 10*3/uL Glucose 133 H (70-110) mg/dL Total Bilirubin <0.2 L (0.3-1.2) mg/dL Total Protein 5.2 L (6.2-8.2) g/dL Albumin 3.4 L (3.8-4.9) g/dL Assessment and Plan Assessment: Postoperative day #3 status post left direct anterior total hip arthroplasty History of smoking and COPD Rheumatoid arthritis Acute on chronic low back pain Plan: Patient continues to have low back pain and what she describes as sciatica although it seems to be improving slightly. We will continue treatment as outlined previously. Due to the patient's difficulty mobilizing with therapy they've recommended rehab. Plans are in place for the patient for discharge to [facility] bed on Monday.
[2023-09-16] MEDS: ZINC SULFATE 220 MG CAP PO SCH (09:01)
[2023-09-16] MEDS: FOLIC ACID 1 MG TAB PO SCH (09:01)
[2023-09-16] MEDS: ASPIRIN 81 MG PO SCH ×2 (09:01→20:16)
[2023-09-16] MEDS: CLOPIDOGREL 75 MG TAB PO SCH (09:01)
[2023-09-16] MEDS: METOPROLOL SUCCINATE (ER) 25 MG TAB.ER.24H PO SCH (09:01)
[2023-09-16] MEDS: CHOLECALCIFEROL 125 MCG (5000 IU) TABLET PO SCH (09:01)
[2023-09-16] MEDS: ATORVASTATIN 40 MG TAB PO SCH (09:01)
[2023-09-16] MEDS: ASCORBIC ACID 500 MG TAB PO SCH (09:01)
[2023-09-16] MEDS: ACETAMINOPHEN TAB 500 MG TAB PO SCH (09:02)
[2023-09-16] MEDS: DOXYCYCLINE 100 MG CAP PO SCH ×2 (09:02→20:36)
[2023-09-16 09:09] LABS: Basophils # (A) 0.05 X 10*3/uL (0.00-0.10); Basophils % (A) 0.6 %; Eosinophils # (A) 0.23 X 10*3/uL (0.04-0.35); Eosinophils % (A) 2.7 %; HCT 28.2 % (37.2-46.3); HGB 9.2 g/dL (12.0-15.0); Lymphocytes # (A) 0.99 X 10*3/uL (0.90-5.00); Lymphocytes % (A) 11.4 %; MCH 28.6 pg (27.0-32.0); MCHC 32.6 g/dL (32.0-37.0); MCV 87.6 FL (80.0-97.0); Mean Platelet Volume 9.7 FL (9.5-12.2); Monocytes # (A) 1.24 X 10*3/uL (0.20-1.00); Monocytes % (A) 14.3 %; NRBC Per 100 WBC 0 X 10*3/uL (0.00-0.01); Neutrophils % (A) 70.5 %; Platelet Count 182 X 10*3/uL (140-440); RBC 3.22 X 10*6/uL (4.10-5.20); RDW 14.5 % (11.5-14.5); WBC 8.65 X 10*3/uL (4.50-10.00)
--- NOTE | 2023-09-16 12:39 | P.PN ---
Subjective Progress Note Date: 09/16/23 Alysha Mayorga, is a 60-year-old female patient of Dr. Balbuena who presented for an elective right hip arthroplasty with Dr. Luevano on 09/13/2023. Patient's past medical history of COPD, hyperlipidemia, hypertension, osteoarthritis and current every day smoker. At this time patient is resting comfortably in bed patient complaining of neck pain denies chest pain or shortness breath. Patient denies nausea vomiting or diarrhea. Patient denies any urinary burning or frequency. PT OT services are following. Patient maintained on aspirin 81 mg twice a day for DVT prophylaxis On 09/15/2023 patient is alert and oriented 3. Patient reports pain is mostly in her back which is a chronic issue for her. Patient denies chest pain or shortness of breath. Patient denies nausea vomiting or diarrhea. Patient denies any urinary burning or frequency. Lab work currently pending. Vital signs temp 98.2, heart rate 91, respiratory rate 18, blood pressure 135/66 with pulse ox 98% on room air. On 09/16/2023 patient was seen and examined on the medical floor she is alert and oriented 3 in no apparent distress she is still complaining of severe pain. Today the pain is mostly in her left flank area. Otherwise she denies any complaints there is no fever or chills no headache or dizziness no chest pain no shortness of breath no cough no nausea or vomiting no abdominal pain no diarrhea and no urinary symptoms. Objective - Vital Signs Vital signs: Vital Signs Temp 98.3 F 09/16/23 08:08 Pulse 97 09/16/23 08:08 Resp 20 09/16/23 08:08 BP 113/62 09/16/23 08:08 Pulse Ox 98 09/16/23 08:08 FiO2 Intake & Output 09/15/23 09/16/23 09/16/23 18:59 06:59 18:59 Other: Voiding Method Toilet Toilet # Voids 4 5 - Exam Head normocephalic Neck supple Lungs clear to auscultation bilaterally no wheezing or crackles Heart regular rate and rhythm S1-S2, no rub or gallop Abdomen is soft nontender nondistended positive bowel sounds no hepatosplenomega ly Extremities no edema. Left hip dressing clean dry and intact Neuro alert and orientated to 3 - Labs CBC & Chem 7: 09/16/23 03:37 09/15/23 07:23 Labs: Abnormal Lab Results - Last 24 Hours (Table) 09/16/23 Range/Units 03:37 RBC 3.22 L (4.10-5.20) X 10*6/uL Hgb 9.2 L (12.0-15.0) g/dL Hct 28.2 L (37.2-46.3) % Monocytes # 1.24 H (0.20-1.00) X 10*3/uL Assessment and Plan Assessment: 1. Left hip arthroplasty with Dr. Luevano on 09/13/2023 2. History of COPD 3. History of rheumatoid arthritis 4. History of coronary artery disease with heart stents 5. Ongoing nicotine dependence DVT prophylaxis aspirin CBC and CMP ordered Thank you for this consultation we'll continue to follow patient closely throughout stay
[2023-09-16 17:32] LABS: Appearance,Urine Clear (Clear); Bilirubin,Urine Negative (Negative); Blood,Urine Negative (Negative); Color,Urine Yellow; Glucose,Urine (UA) Negative (Negative); Ketones,Urine Negative (Negative); Leukocyte Esterase,Urine Negative (Negative); Nitrite,Urine Negative (Negative); PH, Urine 6.5 (5.0-8.0); Protein,Urine Trace (Negative); Specific Gravity,Urine 1.025 (1.001-1.035); Urobilinogen,Urine <2.0 mg/dL (<2.0)
--- NOTE | 2023-09-16 17:36 | US ---
EXAMINATION TYPE: US kidneys/renal and bladder DATE OF EXAM: 09/16/2023 COMPARISON: NONE CLINICAL INDICATION: Female, 68 years old with history of left flank pain; Left flank pain EXAM MEASUREMENTS: Right Kidney: 9.9 x 3.1 x 3.9 cm Left Kidney: 10.0 x 5.3 x 3.8 cm Right Kidney: no evidence of hydronephrosis Left Kidney: no evidence of hydronephrosis Bladder: wnl Bilateral Jets seen: no There is no evidence for hydronephrosis at this point in time. No nephrolithiasis is seen. No sylvester s are identified. The urinary bladder is anechoic. IMPRESSION: No renal calcifications, hydronephrosis or solid renal masses. No significant abnormality seen.
[2023-09-16] MEDS: SENNOSIDES-DOCUSATE SODIUM 1 EACH TAB PO SCH (20:16)
[2023-09-16] MEDS: HYDROcodone/APAP 5-325MG 1 EACH TAB PO PRN (20:16)
[2023-09-16] MEDS: diazePAM 5 MG TAB PO PRN (20:19)
[2023-09-17] MEDS: LACTATED RINGERS 1,000 ML IV SCH (05:58)
[2023-09-17] MEDS: SODIUM CHLORIDE 0.9% 1,000 ML IV SCH ×3 (05:58→22:42)
[2023-09-17] MEDS: CLOPIDOGREL 75 MG TAB PO SCH (08:02)
[2023-09-17] MEDS: CHOLECALCIFEROL 125 MCG (5000 IU) TABLET PO SCH (08:02)
[2023-09-17] MEDS: FOLIC ACID 1 MG TAB PO SCH (08:02)
[2023-09-17] MEDS: ZINC SULFATE 220 MG CAP PO SCH (08:02)
[2023-09-17] MEDS: ATORVASTATIN 40 MG TAB PO SCH (08:02)
[2023-09-17] MEDS: METOPROLOL SUCCINATE (ER) 25 MG TAB.ER.24H PO SCH (08:02)
[2023-09-17] MEDS: ASPIRIN 81 MG PO SCH ×2 (08:02→21:20)
[2023-09-17] MEDS: ASCORBIC ACID 500 MG TAB PO SCH (08:02)
[2023-09-17] MEDS: DOXYCYCLINE 100 MG CAP PO SCH ×2 (08:02→21:20)
[2023-09-17] MEDS: ACETAMINOPHEN TAB 500 MG TAB PO SCH (08:03)
[2023-09-17] MEDS: HYDROcodone/APAP 10-325MG 1 EACH TAB PO PRN (08:04)
--- NOTE | 2023-09-17 08:14 | P.PN ---
Subjective Progress Note Date: 09/17/23 Patient is feeling better this morning. She continues to have some low back pain, but is otherwise improved The pain in her hip is improving. She's been able to ambulate. She denies chest pain or shortness of breath. Objective - Vital Signs Vital signs: Vital Signs Temp 98.2 F 09/17/23 02:00 Pulse 90 09/17/23 02:00 Resp 17 09/17/23 02:00 BP 113/64 09/17/23 02:00 Pulse Ox 93 L 09/17/23 02:00 FiO2 Intake & Output 09/16/23 09/17/23 09/17/23 18:59 06:59 18:59 Other: Voiding Method Toilet Toilet # Voids 4 3 - Exam Patient is resting in her bed. She is alert and able to answer questions. On inspection of the left hip her incisional wound VAC is in place with good seal. The drain sponge is intact. Her thigh is soft. Femoral nerve function is intact. She is able to actively plantarflex and dorsiflex her ankle and her toes. - Labs CBC & Chem 7: 09/16/23 03:37 09/15/23 07:23 Labs: Abnormal Lab Results - Last 24 Hours (Table) 09/16/23 09/16/23 Range/Units 03:37 17:10 RBC 3.22 L (4.10-5.20) X 10*6/uL Hgb 9.2 L (12.0-15.0) g/dL Hct 28.2 L (37.2-46.3) % Monocytes # 1.24 H (0.20-1.00) X 10*3/uL Urine Protein Trace H (Negative) Assessment and Plan Assessment: Postoperative day #4 status post left direct anterior total hip arthroplasty Resolving low back pain COPD and history of cigarette smoking Rheumatoid arthritis Coronary artery disease status post heart stents on Plavix Plan: The patient's low back pain is improving. Clinically she looks better this morning. Continue treatment as outlined previously. The patient will likely discharge to [facility] tomorrow.
[2023-09-17] MEDS ORDERED: metHOTREXate sodium 2.5 MG TAB PO SCH (09:00)
--- NOTE | 2023-09-17 09:46 | P.PN ---
Subjective Progress Note Date: 09/17/23 Alysha Mayorga, is a 60-year-old female patient of Dr. Balbuena who presented for an elective right hip arthroplasty with Dr. Luevano on 09/13/2023. Patient's past medical history of COPD, hyperlipidemia, hypertension, osteoarthritis and current every day smoker. At this time patient is resting comfortably in bed patient complaining of neck pain denies chest pain or shortness breath. Patient denies nausea vomiting or diarrhea. Patient denies any urinary burning or frequency. PT OT services are following. Patient maintained on aspirin 81 mg twice a day for DVT prophylaxis On 09/15/2023 patient is alert and oriented 3. Patient reports pain is mostly in her back which is a chronic issue for her. Patient denies chest pain or shortness of breath. Patient denies nausea vomiting or diarrhea. Patient denies any urinary burning or frequency. Lab work currently pending. Vital signs temp 98.2, heart rate 91, respiratory rate 18, blood pressure 135/66 with pulse ox 98% on room air. On 09/16/2023 patient was seen and examined on the medical floor she is alert and oriented 3 in no apparent distress she is still complaining of severe pain. Today the pain is mostly in her left flank area. Otherwise she denies any complaints there is no fever or chills no headache or dizziness no chest pain no shortness of breath no cough no nausea or vomiting no abdominal pain no diarrhea and no urinary symptoms. On 09/17/2023 patient alert and oriented 3. Renal bladder ultrasound completed showing really no renal calcifications hydronephrosis or solid renal masses. No significant abnormality seen. UA negative. Discharge planning to [facility], [place], operated by [facility] on 09/18/2023 Objective - Vital Signs Vital signs: Vital Signs Temp 98.2 F 09/17/23 02:00 Pulse 90 09/17/23 02:00 Resp 17 09/17/23 02:00 BP 113/64 09/17/23 02:00 Pulse Ox 93 L 09/17/23 02:00 FiO2 Intake & Output 09/16/23 09/17/23 09/17/23 18:59 06:59 18:59 Other: Voiding Method Toilet Toilet # Voids 4 3 - Exam Head normocephalic Neck supple Lungs clear to auscultation bilaterally no wheezing or crackles Heart regular rate and rhythm S1-S2, no rub or gallop Abdomen is soft nontender nondistended positive bowel sounds no hepatosplenomegaly Extremities no edema. Left hip dressing clean dry and intact Neuro alert and orientated to 3 - Labs CBC & Chem 7: 09/16/23 03:37 09/15/23 07:23 Labs: Abnormal Lab Results - Last 24 Hours (Table) 09/16/23 09/16/23 Range/Units 03:37 17:10 RBC 3.22 L (4.10-5.20) X 10*6/uL Hgb 9.2 L (12.0-15.0) g/dL Hct 28.2 L (37.2-46.3) % Monocytes # 1.24 H (0.20-1.00) X 10*3/uL Urine Protein Trace H (Negative) Assessment and Plan Assessment: 1. Left hip arthroplasty with Dr. Luevano on 09/13/2023 2. History of COPD 3. History of rheumatoid arthritis 4. History of coronary artery disease with heart stents 5. Ongoing nicotine dependence 6. Back/flank pain. UA negative renal bladder ultrasound negative DVT prophylaxis aspirin CBC and CMP ordered Discharge planing to [facility], [place], operated by [facility] for 09/18/2023 Thank you for this consultation we'll continue to follow patient closely throughout stay
[2023-09-17] MEDS: SENNOSIDES-DOCUSATE SODIUM 1 EACH TAB PO SCH (21:20)
[2023-09-18] MEDS: HYDROcodone/APAP 5-325MG 1 EACH TAB PO PRN (04:25)
[2023-09-18 06:26] LABS: HCT 29.4 % (34.0-46.0); HGB 10.5 gm/dL (11.4-16.0); MCHC 35.5 g/dL (31.0-37.0); MCV 87.2 fL (80.0-100.0); Mean Platelet Volume 7.5; RBC 3.38 m/uL (3.80-5.40); RDW 14.2 % (11.5-15.5); WBC 6.7 k/uL (3.8-10.6)
[2023-09-18 07:11] LABS: Band Neutrophils % 1 %; Eosinophils # (M) 0.67 k/uL (0-0.7); Lymphocytes # (M) 0.87 k/uL (1.0-4.8); Monocytes # (M) 0.47 k/uL (0-1.0); Neutrophils % (M) 70 %; Nucleated Red Blood Cells 0 /100 WBC (0-0); Total Cells Counted 200
[2023-09-18 07:14] LABS: Platelet Count 197 k/uL (150-450)
[2023-09-18] MEDS ORDERED: CYCLOBENZAPRINE 5 MG TAB PO PRN (07:48)
--- NOTE | 2023-09-18 07:52 | P.DS ---
Providers Date of admission: 09/15/23 10:39 Attending physician: Alvaro Luevano Consults: 09/13/23 18:16 Consult Physician Routine Consulting Provider: Chavo Velazquez Consult Reason/Comments: post op medical management Do you want consulting provider notified?: Yes Primary care physician: Lesley [facility] Course: A 68-year-old female with several medical problems including rheumatoid arth ritis and cigarette smoking as well as coronary artery disease and stents on Plavix who presented last Monday for an elective total hip replacement. Following an and complicated surgery she was transferred to the orthopedic floor. She received 2 doses of IV antibiotics and then was then transitioned to oral doxycycline. She resumed her Plavix and aspirin for DVT prophylaxis. She had issues with low back pain, muscle spasms, and what she describes as sciatica that caused pain in her low back and difficulty ambulating. She worked with physical therapy recommended rehab. She was managed medically by internal medicine. She was ultimately cleared for discharge to rehab on 09/18/2023. Plan - Discharge Summary Discharge Rx Participant: Yes New Discharge Prescriptions: New Omeprazole [PriLOSEC] 40 mg PO DAILY 30 Days #30 cap Docusate [Colace] 100 mg PO BID 30 Days #60 capsule HYDROcodone/APAP 5-325MG [[place] 5-325] 1 - 2 tab PO Q6HR PRN #32 tab PRN Reason: Pain Cyclobenzaprine [Flexeril] 5 mg PO TID #20 tablet Aspirin 81 mg PO DAILY 7 Days #14 tab Doxycycline Monohydrate 100 mg PO BID 14 Days #28 cap No Action Aspirin [Adult Low Dose Aspirin EC] 81 mg PO DAILY Metoprolol Succinate (ER) [Toprol XL] 25 mg PO QAM Clopidogrel [Plavix] 75 mg PO DAILY #30 tab Atorvastatin [Lipitor] 40 mg PO DAILY Folic Acid 1 mg PO DAILY Cholecalciferol [Vitamin D3 (125 Mcg = 5000 Iu)] 125 mcg PO DAILY Garlic 1,000 mg PO DAILY lisinopriL [Zestril] 2.5 mg PO QAM Nitroglycerin Sl Tabs [Nitrostat] 0.4 mg SUBLINGUAL Q5M PRN tab PRN Reason: Chest Pain metHOTREXate sodium 12.5 mg PO WEEKLY Zinc Gluconate [Zinc] 50 mg PO DAILY Ascorbic Acid [Vitamin C] 1,000 mg PO DAILY Acetaminophen [Tylenol Extra Strength] 500 mg PO DAILY inFLIXimab [Remicade] 100 mg IVPB DIRECTED Discharge Medication List Aspirin [Adult Low Dose Aspirin EC] 81 mg PO DAILY 08/05/20 [History] Metoprolol Succinate (ER) [Toprol XL] 25 mg PO QAM 09/14/20 [History] Clopidogrel [Plavix] 75 mg PO DAILY #30 tab 09/22/20 [Rx] Atorvastatin [Lipitor] 40 mg PO DAILY 01/07/23 [History] lisinopriL [Zestril] 2.5 mg PO QAM 01/07/23 [History] Nitroglycerin Sl Tabs [Nitrostat] 0.4 mg SUBLINGUAL Q5M PRN tab 01/11/23 [Rx] Acetaminophen [Tylenol Extra Strength] 500 mg PO DAILY 09/08/23 [History] Ascorbic Acid [Vitamin C] 1,000 mg PO DAILY 09/08/23 [History] Cholecalciferol [Vitamin D3 (125 Mcg = 5000 Iu)] 125 mcg PO DAILY 09/08/23 [History] Folic Acid 1 mg PO DAILY 09/08/23 [History] Garlic 1,000 mg PO DAILY 09/08/23 [History] Zinc Gluconate [Zinc] 50 mg PO DAILY 09/08/23 [History] inFLIXimab [Remicade] 100 mg IVPB DIRECTED 09/08/23 [History] metHOTREXate sodium 12.5 mg PO WEEKLY 09/08/23 [History] Aspirin 81 mg PO DAILY 7 Days #14 tab 09/14/23 [Rx] Docusate [Colace] 100 mg PO BID 30 Days #60 capsule 09/14/23 [Rx] HYDROcodone/APAP 5-325MG [[place] 5-325] 1 - 2 tab PO Q6HR PRN #32 tab 09/14/23 [Rx] Omeprazole [PriLOSEC] 40 mg PO DAILY 30 Days #30 cap 09/14/23 [Rx] Doxycycline Monohydrate 100 mg PO BID 14 Days #28 cap 09/15/23 [Rx] Cyclobenzaprine [Flexeril] 5 mg PO TID #20 tablet 09/18/23 [Rx] Follow up Appointment(s)/Referral(s): [facility] [[facility]] - 1-2 Days ([facility] will call you to schedule your in home physical therapy visits. ) Alvaro Luevano MD [Medical Doctor] - 09/28/23 10:30 am Activity/Diet/Wound Care/Special Instructions: 1. Weight-bear as tolerated on your operative extremity unless instructed otherwise. Use a walker or other assistive device to ambulate. 2. Leave surgical dressing in place. If your dressing becomes saturated with blood, there is drainage, or the dressing becomes loose please contact the office. 3. It is okay to shower with your surgical dressing, but do not submerge in water (no hot tubs, bath's, swimming etc.) 4. Make sure to take her blood clot prevention medication as prescribed: Take aspirin 81 mg twice a day for 1 week and then resume Plavix and your daily aspirin 5. While taking [place] or Percocet for pain make sure you're taking a stool softener (Colace) and drink lots of water. 6. Keep all follow-up appointments as scheduled. You will usually be seen in 1-2 weeks following surgery. 7. Please contact the office with any questions or concerns [phone]
[2023-09-18 07:53] VITALS: BP 142/71; PULSE 66; RESP 18; TEMP 97.8
[2023-09-18] MEDS: ASPIRIN 81 MG PO SCH (08:34)
[2023-09-18] MEDS: ATORVASTATIN 40 MG TAB PO SCH (08:34)
[2023-09-18] MEDS: CHOLECALCIFEROL 125 MCG (5000 IU) TABLET PO SCH (08:34)
[2023-09-18] MEDS: ACETAMINOPHEN TAB 500 MG TAB PO SCH (08:35)
[2023-09-18] MEDS: ASCORBIC ACID 500 MG TAB PO SCH (08:37)
[2023-09-18] MEDS: CLOPIDOGREL 75 MG TAB PO SCH (08:37)
[2023-09-18] MEDS: FOLIC ACID 1 MG TAB PO SCH (08:37)
[2023-09-18] MEDS: METOPROLOL SUCCINATE (ER) 25 MG TAB.ER.24H PO SCH (08:37)
[2023-09-18] MEDS: DOXYCYCLINE 100 MG CAP PO SCH (08:41)
[2023-09-18 11:13] LABS: ALT 22 U/L (8-44); AST 22 U/L (13-35); Albumin 3.4 g/dL (3.8-4.9); Alkaline Phosphatase 93 U/L (41-126); Blood Urea Nitrogen 13.6 mg/dL (9.0-27.0); Carbon Dioxide 22.7 mmol/L (21.6-31.8); Chloride 103 mmol/L (96-109); Glucose 103 mg/dL (70-110); Potassium 4.3 mmol/L (3.5-5.5); Sodium 136 mmol/L (135-145); Total Bilirubin 0.3 mg/dL (0.3-1.2); Total Protein 5.4 g/dL (6.2-8.2)
== END 2023-09-18 14:25 | DRG 470 ==
LOC: OR 13:55 → 4SSUR 17:50 → OR 09-15 10:35 → 4SSUR 09-15 10:39
PROVIDERS: ADMIT Orthopaedic Surgery; ATTEND Orthopaedic Surgery
PROC: 0SRB04A Replacement of Left Hip Joint with Ceramic on Polyethylene Synthetic Substitute, Uncemented, Open Approach (ICD-10-PCS; principal; 2023-09-13 16:00)
DX: M16.0 Bilateral primary osteoarthritis of hip (principal); E78.5 Hyperlipidemia, unspecified; F17.210 Nicotine dependence, cigarettes, uncomplicated; G89.29 Other chronic pain; I10 Essential (primary) hypertension; I25.10 Atherosclerotic heart disease of native coronary artery without angina pectoris; J44.9 Chronic obstructive pulmonary disease, unspecified; L40.9 Psoriasis, unspecified; M06.9 Rheumatoid arthritis, unspecified; M54.40 Lumbago with sciatica, unspecified side; Z79.02 Long term (current) use of antithrombotics/antiplatelets; Z79.82 Long term (current) use of aspirin; Z79.899 Other long term (current) drug therapy; Z95.5 Presence of coronary angioplasty implant and graft; Z28.310 Unvaccinated for COVID-19; Z28.21 Immunization not carried out because of patient refusal; Z95.828 Presence of other vascular implants and grafts
CPT/HCPCS: 64447; 73502; 80053; 85025

== ENCOUNTER → 2023-11-29 | Outpatient (CLI) | payer MEDICARE, OTHER ==
[2023-11-29 11:24] LABS: INR 0.9 (<1.2); Partial Thromboplastin Time 23.4 sec (22.0-30.0)
[2023-11-29 16:11] LABS: ALT 16 U/L (8-44); AST 20 U/L (13-35); Albumin 4.3 g/dL (3.8-4.9); Albumin/Globulin Ratio 1.79 Ratio (1.60-3.17); Alkaline Phosphatase 145 U/L (41-126); BUN/Creat Ratio 21.22 Ratio (12.00-20.00); Blood Urea Nitrogen 19.1 mg/dL (9.0-27.0); Calcium 10.1 mg/dL (8.7-10.3); Carbon Dioxide 26.6 mmol/L (21.6-31.8); Chloride 101 mmol/L (96-109); Globulin 2.4 g/dL (1.6-3.3); Glucose 120 mg/dL (70-110); Potassium 4.9 mmol/L (3.5-5.5); Sodium 138 mmol/L (135-145); Total Bilirubin <0.2 mg/dL (0.3-1.2); Total Protein 6.7 g/dL (6.2-8.2)
[2023-11-29 16:16] LABS: HCT 38.4 % (37.2-46.3); HGB 11.7 g/dL (12.0-15.0); MCH 25.8 pg (27.0-32.0); MCHC 30.5 g/dL (32.0-37.0); MCV 84.6 FL (80.0-97.0); Mean Platelet Volume 10.6 FL (9.5-12.2); NRBC Per 100 WBC 0 X 10*3/uL (0.00-0.01); Platelet Count 303 X 10*3/uL (140-440); RBC 4.54 X 10*6/uL (4.10-5.20); RDW 14.6 % (11.5-14.5)
== END | disposition home or self-care (01) ==
LOC: LABPAT 09:52
PROVIDERS: ATTEND Orthopaedic Surgery
DX: Z01.812 Encounter for preprocedural laboratory examination (principal); Z22.322 Carrier or suspected carrier of Methicillin resistant Staphylococcus aureus; E11.9 Type 2 diabetes mellitus without complications; M16.11 Unilateral primary osteoarthritis, right hip
CPT/HCPCS: 36415; 80053; 83036; 85027; 85610; 85730; 86850; 86900; 86901; 87070

== ENCOUNTER 2023-12-07 05:34 | Day surgery (SDC) | payer MEDICARE, OTHER ==
[2023-11-29 12:24] VITALS: BMI 25.7
[2023-12-07] MEDS ORDERED: LIDOCAINE 1% (10MG/ML) FOR IV START INTRADERMA PRN (05:38)
[2023-12-07] MEDS ORDERED: TRANEXAMIC 1,000 MG/100ML-NACL 1,000 MG in SALINE 1 100ML.BAG IVPB PRN (06:00)
[2023-12-07] MEDS ORDERED: TRANEXAMIC 1,000 MG/100ML-NACL 1,000 MG in SALINE 1 100ML.BAG IV PRN (06:00)
[2023-12-07] MEDS ORDERED: DEXAMETHASONE SOD PHOSPHATE 10 MG/ML 1 ML VIAL IV PRN (06:00)
[2023-12-07] MEDS: ONDANSETRON 4 MG/2 ML VIAL IVP PRN (06:31)
[2023-12-07] MEDS: oxyCODONE ER 10 MG TAB.ER.12H PO PRN (06:31)
[2023-12-07] MEDS: FAMOTIDINE 20 MG/2 ML VIAL IVP PRN (06:31)
[2023-12-07] MEDS: ACETAMINOPHEN TAB 500 MG TAB PO PRN (06:31)
[2023-12-07] MEDS: KETOROLAC 15 MG/ML 1 ML VIAL IVP PRN (06:31)
[2023-12-07] MEDS: DOCUSATE 100 MG CAP PO PRN (06:32)
[2023-12-07] MEDS: DEXAMETHASONE SOD PHOSPHATE 4 MG/ML 1 ML VIAL IVP ONE (06:32)
[2023-12-07] MEDS: LACTATED RINGERS 1,000 ML IV ONE ×2 (06:33→08:41)
[2023-12-07] MEDS: MIDAZOLAM 2 MG/2 ML VIAL IVP ONE (06:36)
[2023-12-07] MEDS ORDERED: PROPOFOL 10 MG/ML 20 ML VIAL IV ONE (06:45)
[2023-12-07] MEDS ORDERED: TRANEXAMIC 1,000 MG/100ML-NACL PREMIX BAG ONE (06:45)
[2023-12-07] MEDS ORDERED: LIDOCAINE 1% INJ 10MG/ML (20 ML MDV) ONE (06:45)
[2023-12-07] MEDS ORDERED: ROPIVACAINE 5 MG/ML 30 ML VIAL ONE (06:45)
[2023-12-07] MEDS ORDERED: MIDAZOLAM 2 MG/2 ML VIAL ONE (06:45)
[2023-12-07] MEDS ORDERED: fentaNYL (PF) 50 MCG/ML 2 ML AMP ONE (06:45)
[2023-12-07] MEDS ORDERED: ROCURONIUM 10 MG/ML (5 ML VIAL) IV ONE (06:45)
[2023-12-07] MEDS ORDERED: NEOSTIGMINE 1 MG/ML 10 ML VIAL ONE (06:45)
[2023-12-07] MEDS ORDERED: DEXAMETHASONE SOD PHOSPHATE 4 MG/ML 1 ML VIAL ONE (06:45)
[2023-12-07] MEDS ORDERED: SUCCINYLCHOLINE CHLORIDE 200 MG/10 ML VIAL IV ONE (06:45)
[2023-12-07] MEDS ORDERED: GLYCOPYRROLATE 0.2 MG/ML 2 ML VIAL ONE (06:45)
[2023-12-07] MEDS ORDERED: MIDAZOLAM 2 MG/2 ML VIAL IV PRN (07:00)
[2023-12-07] MEDS: ROPIVACAINE/EPI/CLONIDINE/KET 50 ML SYRINGE MISCELLANE PRN (07:32)
[2023-12-07] MEDS: VANCOMYCIN 1,000 MG VIAL MISCELLANE ONE (08:30)
[2023-12-07] MEDS ORDERED: MAGNESIUM HYDROXIDE 2,400 MG/30 ML CUP PO PRN (08:34)
[2023-12-07] MEDS ORDERED: NALOXONE 0.4 MG/ML 1 ML VIAL IV PRN (08:34)
[2023-12-07] MEDS ORDERED: ONDANSETRON 4 MG/2 ML VIAL IVP PRN (08:34)
[2023-12-07] MEDS ORDERED: HYDROmorphone 0.5 MG/0.5 ML SYRINGE IVP PRN ×3 (08:34)
[2023-12-07] MEDS ORDERED: ACETAMINOPHEN TAB 325 MG TAB PO PRN (08:34)
--- NOTE | 2023-12-07 08:46 | FL ---
EXAMINATION TYPE: FL guidance operating room, XR Hip Limited RT Intraoperative/procedural fluoroscopi c services were provided. Total fluoroscopy time is 29 seconds with a total of 6 submitted images to PACS. Please see the operative/procedural note for further details. DAP: 1.5184 Gycm2
--- NOTE | 2023-12-07 09:01 | P.OP ---
Date of Procedure: 12/07/23 Preoperative Diagnosis: 1. Severe right hip osteoarthritis 2. Prior left total hip replacement 3. Rheumatoid arthritis 4. History of cigarette smoking 5. Psoriasis Postoperative Diagnosis: Same Procedure(s) Performed: 1. Right direct anterior total hip arthroplasty 2. Application of negative pressure incisional wound VAC, right hip, less than 50 cm, incision measuring 15-cm Implants: 1. [place] Trident II Acetabular Cup, Size #48 2. [place] Insignia Size # 3 Femoral Stem, Standard Offset 3. Biolox delta femoral head, 36 mm, - 5 mm neck Anesthesia: GETA, regional Surgeon: Alvaro Luevano Chief Clinical Dietitian #1: Andrae Garcia Estimated Blood Loss (ml): 100 IV fluids (ml): 800 Pathology: none sent Condition: stable Disposition: PACU Indications for Procedure: The patient previously had a left total hip replacement by myself. She did well with this. She went on to heal without any sign of infection. The patient has multiple medical problems including a history of cigarette smoking and rheuma toid arthritis. She has severe right hip arthritis that failed nonsurgical treatment. We discussed that she is at an elevated risk and that she did well after her left hip does not necessarily mean she will have delayed wound healing or infection on the right. She understands this. She was strongly encouraged to continue smoking cessation in the perioperative period to lower her risk. I had a long discussion with the patient in the office on the potential risks and complications of an elective total hip replacement through a direct anterior approach. Risks discussed include, but are certainly not limited to, risks from anesthesia, superficial infection requiring local wound care or antibiotics, deep lucille-prosthetic joint infection and the treatment required to eradicate infection, intraoperative fracture, postoperative periprosthetic fracture, damage to local blood vessels or nerves particularly the lateral femoral cutaneous nerve, delayed wound healing requiring local wound care or possibly surgical debridement, hip dislocation, leg length discrepancy, soft tissue irritation around the total hip implant such as iliopsoas tendinitis or trochanteric bursitis, wear and osteolysis from the implants, squeaking or audible noises, groin pain, thigh pain, heterotopic ossification, stiffness, aseptic loosening of the implants, dissatisfaction with surgical outcome, need for revision surgery, DVT, PE, swelling of the operative extremity, acute coronary event, stroke, failure to thrive, and possibly loss of life or limb. The patient understands that while these are the most common complications after an elective hip replacement there are certainly other less common complications possible. They were given ample time to ask questions regarding the potential complications of a hip replacement. Following our discussion the patient provided their verbal and written consent to go forward with an elective total hip replacement. Operative Findings: Severe right hip osteoarthritis Description of Procedure: The patient was identified in the preoperative holding area and the correct hip was marked with my initials. I reviewed the procedure and consent with the patient. All of their questions were answered. The patient was then brought back into the operating room by anesthesia. While on the [facility] anesthesia was administered by the anesthesia team. Preoperative antibiotics and tranexamic acid were also given. After the patient was under anesthesia I examined their ankles to determine their preoperative leg length discrepancy. The skin over the anterior aspect of the hip was shaved to remove hair over the site of planned incision. Both feet and ankles were padded with webril and boots for the [place] were applied. The patient was then carefully transferred onto the [place] table. A perineal post was immediately placed. The arms were placed on arm holders and were well-padded. Both boots were secured to the spars on the [place] table. The patient was positioned so that the pelvis was centered over the post. Nonsterile drapes were applied. A timeout was performed identifying the correct patient, operative extremity, and procedure. At this point fluoroscopy was brought in to take preoperative images of the pelvis and operative hip. Using the standing AP pelvis from the office as a template, a comparable image was obtained with fluoroscopy. A metallic bar was used to create a bi-ischial line for use as a reference to leg length adjustments during the procedure. Global offset was also measured on both the operative and nonoperative leg. Fluoroscopy was then brought out and a pre-scrub using a chlorhexidine scrub brush was performed. The operative limb was then prepped and draped in the standard sterile fashion. An anterior longitudinal incision was made lateral and distal to the ASIS. The skin and subcutaneous tissues were incised sharply. The underlying tensor fascia was identified and incised in its midportion. The fascia was dissected free from the underlying muscle and the muscle belly was retracted. A blunt tipped cobra retractor was placed over the superior neck under the muscle fibers of the gluteus minimus. The deep enveloping fascia of the tensor was incised. The anterior leash of vessels were then identified and cauterized. The fascia between the rectus and the capsule was then incised and the pre-capsular fat was excised. A second Cobra was placed inferior to the neck. The interval between the rectus and iliocapsularis and the hip capsule was developed and a retractor was placed carefully over the anterior rim of the acetabulum. A T-shaped anterior capsulotomy was performed. The superior capsular leaflet was left in place in the inferior capsular flap was excised. The Cobra retractors were placed intracapsularly. We then made a femoral neck osteotomy according to preoperative and intraoperative templating and confirmed the level of the o steotomy using fluoroscopic imaging. The femoral head was removed, passed off to the back table, and sized. The superior capsular flap was excised. Retractors were placed circumferentially exposing the acetabulum. We then circumferentially debrided the acetabulum free of labrum and osteophytes. The pulvinar was removed to fully visualize the cotyloid fossa. We then sequentially reamed to achieve peripheral fit and excellent bleeding subchondral bone. The socket was thoroughly irrigated. The acetabular component was impacted into the appropriate position using fluoroscopy to guide version, inclination, and depth of insertion taking care to have a comparable image of the AP pelvis to the standing image taken in the office. An excellent press-fit was achieved and final position was confirmed using fluoroscopy. The press fit was augmented with bony cancellus dome screws. The liner was then impacted into the socket. Attention was then turned to the femur. The remnant dorsal lateral capsule was excised. The short external rotators were visible and protected. A bone hook was used to confirm appropriate translation of the trochanter away from the acetabulum. The leg was then extended and adducted and the bone hook was used to elevate the femur for broaching. A box osteotome and blunt tipped canal sound was then utilized to gain access to the femoral canal. We then seq uentially broached the femur in appropriate anteversion until excellent torsional stability was achieved. The neck cut was brought flush to the trial broach with a calcar planar. A trial neck and head were then placed onto the broach and the hip was atraumatically reduced under direct visualization. External rotation to 90 was performed to assess stability. Fluoroscopy was brought in. An AP and lateral fluoroscopic image of the proximal femur was obtained to assess position and fill of the trial broach. An AP of the pelvis was then obtained and matched to the preoperative image taken. A bi-ischial bar was then placed and measurements were taken to assess changes in length and offset. The hip was then carefully dislocated, the proximal femur was exposed, and the trial implants were removed. The wound and proximal femur was thoroughly irrigated using sterile saline and pulsatile lavage. The final femoral implant was dispensed and gently tapped into place generating an excellent press-fit. The trunnion was cleansed and the final head was tapped into place to engage the Baldwin taper. The acetabulum was irrigated and visualized to be free of debris. The hip was carefully reduced. Stability was checked clinically with external rotation to 90 and there was no evidence of instability. Final fluoroscopic images were taken. The wound was then thoroughly irrigated and soaked with a dilute Betadine rinse for 3 minutes. 3 L of sterile saline was irrigated through the wound using pulsatile lavage. Local anesthetic cocktail was injected into the soft tissues around the surgical field. 2 g of vancomycin powder was placed deep within the wound at the level of the implant. The wound was then closed in layers. An incisional wound VAC was placed over the closed incision to help lower the risk of delayed wound healing and surgical site infection. A drain sponge was also applied. After connecting the wound VAC to it's power source, there was an excellent seal. The drapes were taken down and the patient was carefully transferred off of the [place] table. Following removal of the boots the leg lengths felt acceptable. The patient was then taken to recovery room having tolerated the procedure well. Andrae Garcia PA-C was required as a skilled executive staff assistant due to the complexity of the surgery for patient positioning, draping, exposure, retraction, placement of implants, closure of wound, and application of dressing PLAN: The patient can weight-bear as tolerated on the operative extremity. 2 doses of postoperative antibiotics. DVT prophylaxis with aspirin 81 mg twice a day or one week after which she can resume her Plavix and go down to aspirin 81 mg daily. Physical therapy for gait training. She'll be discharged home on doxycycline 100 mg twice a day until her incision heals.
[2023-12-07] MEDS: HYDROmorphone 0.5 MG/0.5 ML SYRINGE IVP PRN (09:14)
[2023-12-07] MEDS: droPERidol 5 MG/2 ML VIAL IVP ONE (09:20)
[2023-12-07] MEDS: ONDANSETRON 4 MG/2 ML VIAL IVP ONE (11:04)
[2023-12-07] MEDS: LACTATED RINGERS 1,000 ML IV SCH ×2 (11:04→11:05)
[2023-12-07] MEDS: DEXAMETHASONE SOD PHOSPHATE 4 MG/ML 1 ML VIAL IV ONE (11:04)
[2023-12-07] MEDS: DOXYCYCLINE 100 MG CAP PO SCH (11:05)
[2023-12-07] MEDS: MULTIVITAMINS, THERA 1 EACH TAB PO SCH (12:58)
[2023-12-07] MEDS: HYDROcodone/APAP 7.5-325MG 1 EACH TAB PO PRN ×2 (14:23→22:38)
[2023-12-07] MEDS ORDERED: NITROGLYCERIN SL TABS 0.4 MG TAB SUBLINGUAL PRN (16:30)
--- NOTE | 2023-12-07 17:03 | P.CONS ---
History of Present Illness - Reason for Consult Consult date: 12/07/23 - History of Present Illness Alysha Aburto, is a 68-year-old female who was admitted to [facility] by Dr. Luevano and underwent right anterior total hip arthroplasty on 12/07/2023 medical consultation was requested for management while hospitalized. Patient has a known past medical history significant for hypertension, hyperlipidemia, carotid stenosis, diabetes mellitus type 2 without complication, osteoarthritis, left bundle branch block, peripheral vascular disease, and chronic obstructive pulmonary disease. Past Medical History Past Medical History: COPD, Hyperlipidemia, Hypertension, Osteoarthritis (OA), Skin Disorder Additional Past Medical History / Comment(s): Numbness in left hip. Psoriasis. Hx left arm numbness and tingling, irregular heartbeat, hx heaviness in chest periodically, had 2 carotid stents placed. History of Any Multi-Drug Resistant Organisms: None Reported Past Surgical History: Heart Catheterization, Joint Replacement, Orthopedic Surgery, Tonsillectomy Additional Past Surgical History / Comment(s): Neck surgery C5/6/7 plate placement, Carotid stent X2 09/21, left hip replacement. Past Anesthesia/Blood Transfusion Reactions: No Reported Reaction Smoking Status: Current every day smoker - Past Family History Mother Family Medical History: No Reported History Brother(s) Family Medical History: Cancer Medications and Allergies Home Medications Medication Instructions Recorded Confirmed Type Aspirin [Adult Low Dose Aspirin EC] 81 mg PO DAILY 08/05/20 12/07/23 History Metoprolol Succinate (ER) [Toprol 25 mg PO QAM 09/14/20 12/07/23 History XL] Clopidogrel [Plavix] 75 mg PO DAILY #30 tab 09/22/20 12/07/23 Rx Atorvastatin [Lipitor] 40 mg PO DAILY 01/07/23 12/07/23 History lisinopriL [Zestril] 2.5 mg PO QAM 01/07/23 12/07/23 History Nitroglycerin Sl Tabs [Nitrostat] 0.4 mg SUBLINGUAL Q5M PRN tab 01/11/23 12/07/23 Rx Ascorbic Acid [Vitamin C] 1,000 mg PO DAILY 09/08/23 12/07/23 History Cholecalciferol [Vitamin D3 (125 125 mcg PO DAILY 09/08/23 12/07/23 History Mcg = 5000 Iu)] Folic Acid 1 mg PO DAILY 09/08/23 12/07/23 History Garlic 1,000 mg PO DAILY 09/08/23 12/07/23 History Zinc Gluconate [Zinc] 50 mg PO DAILY 09/08/23 12/07/23 History L.acidoph,Paracasei, B.lactis 1 each PO DAILY 11/29/23 12/07/23 History [Probiotic] Aspirin [Adult Low Dose Aspirin EC] 81 mg PO BID #14 tab 12/07/23 Rx Docusate [Colace] 100 mg PO BID #60 capsule 12/07/23 Rx Doxycycline Hyclate 100 mg PO BID #10 tab 12/07/23 Rx Ondansetron [Zofran] 4 mg PO Q8HR PRN #21 tab 12/07/23 Rx Allergies Allergy/AdvReac Type Severity Reaction Status Date / Time No Known Allergies Allergy Verified 11/29/23 11:55 Physical Exam Vitals: Vital Signs Temp Pulse Resp BP Pulse Ox 12/07/23 14:00 16 12/07/23 11:49 84 132/80 12/07/23 11:34 69 111/62 12/07/23 11:19 75 112/69 12/07/23 11:05 75 108/54 12/07/23 10:49 68 106/52 12/07/23 10:34 68 109/67 12/07/23 10:19 97.5 F L 72 16 109/68 12/07/23 09:55 68 16 110/54 97 12/07/23 09:40 66 16 108/50 98 12/07/23 09:25 67 16 122/70 95 12/07/23 09:10 78 16 123/56 96 12/07/23 08:55 97.3 F L 96 16 137/76 100 12/07/23 06:51 73 18 113/56 100 12/07/23 05:58 97.2 F L 79 18 136/61 98 Intake and Output 12/07/23 12/07/23 12/07/23 06:59 14:59 22:59 Intake Total 1050 300 Output Total 100 Balance 1050 200 Intake: IV 1050 300 Output: Estimated Blood Loss 100 Other: # Voids 1 3 Weight 64.7 kg 64.7 kg In general patient is alert and oriented x 3 in no distress HEENT head normocephalic and atraumatic Neck is supple no JVD no goiter no lymphadenopathy no carotid bruit Chest examination is clear to auscultation no crackles no wheezing Cardiac exam reveals regular heart sounds S1 and S2 no gallops no murmurs Abdomen is soft nontender no organomegaly with normal bowel sounds Extremity exam reveals no edema no cyanosis or clubbing Neurological examination reveals no gross focal deficits Assessment and Plan Plan: Osteoarthritis of the right hip Status post right total hip arthroplasty on 12/07/2023 Underlying history of hypertension Underlying history of hyperlipidemia Underlying history of diabetes mellitus type 2 Underlying history of COPD At this time patient is admitted to medical floor She is alert and oriented in no apparent distress Home medications reviewed and reordered Will check labs in a.m. DVT prophylaxis and pain management as per orthopedic protocols Will follow closely
[2023-12-07] MEDS: ATORVASTATIN 40 MG TAB PO SCH (17:13)
[2023-12-07] MEDS: LACTOBACILLUS ACIDOPHILUS/PECT 1 EACH CAPSULE PO SCH (17:13)
[2023-12-07 20:13] VITALS: RESP 18
--- NOTE | 2023-12-07 20:27 | P.ANPRN ---
Procedure Note - Anesthesia - Nerve Block Performed Right Oneal Single Time Out Performed: Yes Date of Procedure: 12/07/23 Procedure Start Time: 06:36 Procedure Stop Time: 06:41 Location of Patient: PreOp Indication: Acute Post-Operative Pain, Requested by Surgeon Sedation Type: Sedate with meaningful contact maintained Preparation: Sterile Prep Position: Supine Needle Types: [place]ajunk Needle Gauge: 21 Ultrasound used to visualize needle placement: Yes Ultrasound used to observe medication spread: Yes Blood Aspirated: No Pain Paresthesia on Injection Noted: No Resistance on Injection: Normal Image Stored and Saved: Yes Events: Uneventful and Well Tolerated (Ropivacaine 0.5% 20 cc plus dexamethasone 4 mg)
[2023-12-07] MEDS ORDERED: ASPIRIN 81 MG PO SCH (21:00)
[2023-12-07] MEDS: SENNOSIDES-DOCUSATE SODIUM 1 EACH TAB PO SCH (22:36)
[2023-12-07] MEDS: diazePAM 5 MG TAB PO PRN (22:39)
[2023-12-08] MEDS: traMADol 50 MG TAB PO PRN (01:04)
[2023-12-08] MEDS ORDERED: CYCLOBENZAPRINE 5 MG TAB PO PRN (07:58)
--- NOTE | 2023-12-08 08:00 | P.DS ---
Providers Date of admission: , 12/07/2023 Attending physician: Alvaro Luevano Consults: 12/07/23 08:34 Consult Physician Routine Consulting Provider: Chavo Velazquez Consult Reason/Comments: post op medical manegment Do you want consulting provider notified?: Yes Primary care physician[facility] Course: The patient is very pleasant 60-year-old female with multiple medical problems who is admitted under my care and underwent an uncomplicated right total hip replacement yesterday. Following surgery she was transferred to the orthopedic when stable condition. She was transitioned from IV to oral pain medications. She received 2 doses of postoperative antibiotics. She was seen by internal medicine. On postoperative day #1 I evaluated her and she was comfortable. Her incisional wound VAC was intact with good seal. Femoral nerve function was intact. Distally she was able to actively plantarflex and dorsiflex her ankle and her toes. She worked with physical therapy and ultimate was cleared for discharge Plan - Discharge Summary Discharge Rx Participant: Yes New Discharge Prescriptions: New Doxycycline Monohydrate 100 mg PO BID #28 cap Docusate [Colace] 100 mg PO BID #60 capsule Ondansetron [Zofran] 4 mg PO Q8HR PRN #21 tab PRN Reason: Nausea HYDROcodone/APAP 5-325MG [Corrigan 5-325] 1 - 2 tab PO Q6HR PRN #32 tab PRN Reason: Pain Cyclobenzaprine [Flexeril] 5 mg PO TID PRN #20 tablet PRN Reason: Muscle Spasm No Action Aspirin [Adult Low Dose Aspirin EC] 81 mg PO DAILY Metoprolol Succinate (ER) [Toprol XL] 25 mg PO QAM Clopidogrel [Plavix] 75 mg PO DAILY #30 tab Atorvastatin [Lipitor] 40 mg PO DAILY Folic Acid 1 mg PO DAILY Cholecalciferol [Vitamin D3 (125 Mcg = 5000 Iu)] 125 mcg PO DAILY Garlic 1,000 mg PO DAILY lisinopriL [Zestril] 2.5 mg PO QAM Nitroglycerin Sl Tabs [Nitrostat] 0.4 mg SUBLINGUAL Q5M PRN tab PRN Reason: Chest Pain Zinc Gluconate [Zinc] 50 mg PO DAILY Ascorbic Acid [Vitamin C] 1,000 mg PO DAILY L.acidoph,Paracasei, B.lactis [Probiotic] 1 each PO DAILY Discharge Medication List Aspirin [Adult Low Dose Aspirin EC] 81 mg PO DAILY 08/05/20 [History] Metoprolol Succinate (ER) [Toprol XL] 25 mg PO QAM 09/14/20 [History] Clopidogrel [Plavix] 75 mg PO DAILY #30 tab 09/22/20 [Rx] Atorvastatin [Lipitor] 40 mg PO DAILY 01/07/23 [History] lisinopriL [Zestril] 2.5 mg PO QAM 01/07/23 [History] Nitroglycerin Sl Tabs [Nitrostat] 0.4 mg SUBLINGUAL Q5M PRN tab 01/11/23 [Rx] Ascorbic Acid [Vitamin C] 1,000 mg PO DAILY 09/08/23 [History] Cholecalciferol [Vitamin D3 (125 Mcg = 5000 Iu)] 125 mcg PO DAILY 09/08/23 [History] Folic Acid 1 mg PO DAILY 09/08/23 [History] Garlic 1,000 mg PO DAILY 09/08/23 [History] Zinc Gluconate [Zinc] 50 mg PO DAILY 09/08/23 [History] L.acidoph,Paracasei, B.lactis [Probiotic] 1 each PO DAILY 11/29/23 [History] Docusate [Colace] 100 mg PO BID #60 capsule 12/07/23 [Rx] Ondansetron [Zofran] 4 mg PO Q8HR PRN #21 tab 12/07/23 [Rx] Cyclobenzaprine [Flexeril] 5 mg PO TID PRN #20 tablet 12/08/23 [Rx] Doxycycline Monohydrate 100 mg PO BID #28 cap 12/08/23 [Rx] HYDROcodone/APAP 5-325MG [Corrigan 5-325] 1 - 2 tab PO Q6HR PRN #32 tab 12/08/23 [Rx] Follow up Appointment(s)/Referral(s): Alvaro Luevano MD [Medical Doctor] - 2 Weeks Activity/Diet/Wound Care/Special Instructions: 1. Weight-bear as tolerated on your operative extremity unless instructed otherwise. Use a walker or other assistive device to ambulate. 2. Leave surgical dressing in place. If your dressing becomes saturated with blood, there is drainage, or the dressing becomes loose please contact the office. 3. It is okay to shower with your surgical dressing, but do not submerge in water (no hot tubs, bath's, swimming etc.) 4. Make sure to take her blood clot prevention medication as prescribed - resume your home dose of Plavix and aspirin 5. While taking Corrigan or Percocet for pain make sure you're taking a stool softener (Colace) and drink lots of water. 6. Keep all follow-up appointments as scheduled. You will usually be seen in 1-2 weeks following surgery. 7. Please contact the office with any questions or concerns [phone] Discharge Disposition: HOME WITH HOME HEALTH SERVICES
[2023-12-08 08:29] VITALS: BP 107/63; PULSE 80; TEMP 98.1
[2023-12-08 08:38] LABS: Basophils # (A) 0.06 X 10*3/uL (0.00-0.10); Basophils % (A) 0.4 %; Eosinophils % (A) 0.7 %; HCT 25.7 % (37.2-46.3); HGB 8.1 g/dL (12.0-15.0); Lymphocytes # (A) 1.57 X 10*3/uL (0.90-5.00); Lymphocytes % (A) 11.4 %; MCH 25.5 pg (27.0-32.0); MCHC 31.5 g/dL (32.0-37.0); MCV 80.8 FL (80.0-97.0); Monocytes # (A) 1.28 X 10*3/uL (0.20-1.00); Monocytes % (A) 9.3 %; NRBC Per 100 WBC 0 X 10*3/uL (0.00-0.01); Neutrophils # (A) 10.68 X 10*3/uL (1.80-7.70); Neutrophils % (A) 77.7 %; Platelet Count 215 X 10*3/uL (140-440); RBC 3.18 X 10*6/uL (4.10-5.20); RDW 14.7 % (11.5-14.5); WBC 13.76 X 10*3/uL (4.50-10.00)
[2023-12-08 08:57] LABS: ALT 14 U/L (8-44); AST 31 U/L (13-35); Albumin 3.2 g/dL (3.8-4.9); Albumin/Globulin Ratio 1.78 Ratio (1.60-3.17); Alkaline Phosphatase 99 U/L (41-126); BUN/Creat Ratio 16.67 Ratio (12.00-20.00); Calcium 8.8 mg/dL (8.7-10.3); Carbon Dioxide 23.9 mmol/L (21.6-31.8); Chloride 105 mmol/L (96-109); Globulin 1.8 g/dL (1.6-3.3); Glucose 90 mg/dL (70-110); Potassium 4.2 mmol/L (3.5-5.5); Sodium 138 mmol/L (135-145); Total Bilirubin <0.2 mg/dL (0.3-1.2)
[2023-12-08] MEDS: ASPIRIN 81 MG PO SCH (09:25)
[2023-12-08] MEDS: CLOPIDOGREL 75 MG TAB PO SCH (09:25)
[2023-12-08] MEDS: ASCORBIC ACID 500 MG TAB PO SCH (09:26)
[2023-12-08] MEDS: ZINC SULFATE 220 MG CAP PO SCH (09:26)
[2023-12-08] MEDS: FAMOTIDINE 20 MG TAB PO SCH (09:28)
[2023-12-08] MEDS: CHOLECALCIFEROL 125 MCG (5000 IU) TABLET PO SCH (09:28)
[2023-12-08] MEDS: METOPROLOL SUCCINATE (ER) 25 MG TAB.ER.24H PO SCH (09:28)
[2023-12-08] MEDS: FOLIC ACID 1 MG TAB PO SCH (09:28)
--- NOTE | 2023-12-08 10:43 | P.PN ---
Subjective Progress Note Date: 12/08/23 Alysha Aburto, is a 68-year-old female who was admitted to [facility] by Dr. Luevano and underwent right anterior total hip arthroplasty on 12/07/2023 medical consultation was requested for management while hospitalized. Patient has a known past medical history significant for hypertension, hyperlipidemia, carotid stenosis, diabetes mellitus type 2 without complication, osteoarthritis, left bundle branch block, peripheral vascular disease, and chronic obstructive pulmonary disease. On 12/08/2022 for patients alert and oriented 3. Patient has been cleared for discharge from orthopedic standpoint. Hemoglobin low at 8.1. Will DC patient on ferrous sulfate. Patient follow-up with PCP for further management. The blood cell also slightly elevated at 13.76 but does appear patient received IV steroids. Denies any acute complaints. Denies chest pain, shortness of breath. Patient denies nausea vomiting or diarrhea. Patient denies any urinary burning or frequency Objective - Vital Signs Vital signs: Vital Signs Temp 98.1 F 12/08/23 07:02 Pulse 80 12/08/23 07:02 Resp 18 12/08/23 07:02 BP 107/63 12/08/23 07:02 Pulse Ox 95 12/08/23 07:02 FiO2 Intake & Output 12/07/23 12/08/23 12/08/23 18:59 06:59 18:59 Intake Total 540 Output Total 100 Balance 440 Weight 64.7 kg Intake: IV 300 Oral 240 Output: Estimated Blood Loss 100 Other: Voiding Method Toilet # Voids 3 3 - Exam In general patient is alert and oriented x 3 in no distress HEENT head normocephalic and atraumatic Neck is supple no JVD no goiter no lymphadenopathy no carotid bruit Chest examination is clear to auscultation no crackles no wheezing Cardiac exam reveals regular heart sounds S1 and S2 no gallops no murmurs Abdomen is soft nontender no organomegaly with normal bowel sounds Extremity exam reveals no edema no cyanosis or clubbing Neurological examination reveals no gross focal deficits - Labs CBC & Chem 7: 12/08/23 05:30 12/08/23 05:30 Labs: Abnormal Lab Results - Last 24 Hours (Table) 12/08/23 12/08/23 Range/Units 05:30 05:30 WBC 13.76 H (4.50-10.00) X 10*3/uL RBC 3.18 L (4.10-5.20) X 10*6/uL Hgb 8.1 L (12.0-15.0) g/dL Hct 25.7 L (37.2-46.3) % MCH 25.5 L (27.0-32.0) pg MCHC 31.5 L (32.0-37.0) g/dL RDW 14.7 H (11.5-14.5) % Immature Gran # 0.07 H (0.00-0.04) X 10*3/uL Neutrophils # 10.68 H (1.80-7.70) X 10*3/uL Monocytes # 1.28 H (0.20-1.00) X 10*3/uL Total Bilirubin <0.2 L (0.3-1.2) mg/dL Total Protein 5.0 L (6.2-8.2) g/dL Albumin 3.2 L (3.8-4.9) g/dL Assessment and Plan Plan: Osteoarthritis of the right hip Status post right total hip arthroplasty on 12/07/2023 Underlying history of hypertension Underlying history of hyperlipidemia Underlying history of diabetes mellitus type 2 Underlying history of COPD Anemia likely secondary from surgery. Patient will be DC'd on ferrous sulfate At this time patient is admitted to medical floor She is alert and oriented in no apparent distress Home medications reviewed and reordered Will check labs in a.m. DVT prophylaxis and pain management as per orthopedic protocols Will follow closely
[2023-12-08] MEDS: FERROUS SULFATE 325 MG TAB PO SCH (12:38)
== END 2023-12-08 12:58 | disposition home health service (06) ==
LOC: OR 05:34 → 4SSUR 08:40 → OR 12-08 12:58
PROVIDERS: ATTEND Orthopaedic Surgery
DX: M16.11 Unilateral primary osteoarthritis, right hip (principal); M06.851 Other specified rheumatoid arthritis, right hip; G89.18 Other acute postprocedural pain; I10 Essential (primary) hypertension; E78.5 Hyperlipidemia, unspecified; E11.51 Type 2 diabetes mellitus with diabetic peripheral angiopathy without gangrene; J44.9 Chronic obstructive pulmonary disease, unspecified; L40.9 Psoriasis, unspecified; F17.200 Nicotine dependence, unspecified, uncomplicated; Z96.643 Presence of artificial hip joint, bilateral; Z79.82 Long term (current) use of aspirin; Z79.02 Long term (current) use of antithrombotics/antiplatelets; Z79.899 Other long term (current) drug therapy
CPT/HCPCS: 97162; 97166; 80053; 85025; 73501; 27130; 64450; J2250; J3370; J1100; J0690; J2405; J3490; J1885; J1170; J1790; 64447